=== PATIENT | female | born 1935 ===

== ENCOUNTER 2016-06-11 11:56 | Inpatient (IN) | payer MEDICARE ==
[2016-06-11 12:04] VITALS: BMI 30.9
--- NOTE | 2016-06-11 12:07 | ED PDOC ---
HPI:STROKE - Time Time: 12:05 - Historian Historian: EMS - Chief Complaint Chief Complaint: Mental status change, Unresponsive - Onset Onset: Just prior to presenting - Location Location: Mental Status - Notes: Notes:: 80 year old female is brought in by EMS for a sudden stroke. She was at physical therapy and became AMS. Unable to obtain HPI due to AMS. PMD: Rupesh Yocasta NIHSS Stroke Scale - Date/Time Evaluation Performed Date Performed: 06/11/16 Time Performed: 12:05 When Was NIHSS Performed: Code Stroke - How Severe is the Stroke Level of Consciousness: 3=Unresponsive LOC to Questions: 2=Neither correct LOC to commands: 2=Neither correct Best Gaze: 2=Forced deviation Visual: 0=No visual loss Facial: 0=Normal Motor Arm - Left: 4=No movement Motor Arm - Right: 4=No movement Motor Leg - Left: 4=No movement Motor Leg - Right: 4=No movement Limb Ataxia: 0=Absent Sensory: 2=Severe to total loss Best Language: 3=Mute Dysarthia: 0=Normal articulation Extinction & Inattention (Neglect): 0=Normal, no object Score: 30 rTPA Inclusion/Exclusion - Refusal of Treatment Patient Refused Treatment: No - Inclusion Criteria for Altepase Patient is 18 years or Older: Yes The Clinical Diagnosis of Ischemic Stroke That is Causing a Potentially Disabling Neurological Deficit: Yes Time of Onset is Well Established to be Less Than 270 Minute Before Treatment Would Begin: Yes Risk/Benefit Discussed With Patient/Family Member Present: No - Exclusion Criteria for Altepase Uncontrolled Hypertension at Time of Treatment (Systolic BP above 185 or Diastolic BP above 110 mmHg): No History of: Brain Tumor Active Internal Bleeding: Yes Known Bleeding Diathesis Including but Not Limited to: Platelets Below 100,000/ mm,PTT Above 40 sec After Heparin Use, Current Use of Oral Anitcoagulant With INR Greater Than 1.7 or PT Greater Than 15 secs: No Evidence of an Intracranial Hemorrhage: No Evidence of Major Acute Infarct With Signs Greater Than 1/3 MCA Territory: No Suspicion of Subarachnoid Hemorrhage on Pretreatment Evaluation Even if CT Head Negative For Hemorrhage: No - Warning to TPA With Conditions Following Conditions Weighed Against Anticipated Benefit: Yes Condition: Age Greater Than 75 years, Stroke Severity Too Severe (NIHSS greater than 22) Additional Condition (For 3-4.5 Hour Window): Any anticoagulant use prior to admission (Even if INR less than 1.7) Past Medical History Reviewed: Nursing Documentation, Vital Signs - Medical History PMH: Anxiety, Arthritis, Asthma, COPD, CVA, Depression, Deep Vein Thrombosis, Gastritis, HTN, Hypercholesterolemia, Osteoporosis, Pneumonia, TIA Denies: HIV, Chronic Kidney Disease - Surgical History Surgical History: Endoscopy - Family History Family History: States: Unknown Family Hx - Home Medications Home Medications: Ambulatory Orders Medication Instructions Recorded Hydrochlorothiazide [HCTZ] 12.5 mg PO DAILY 09/25/15 Rivaroxaban [Xarelto] 20 mg PO QPM 09/25/15 Simvastatin [Zocor] 20 mg PO HS 09/25/15 Acetaminophen [Acetaminophen Extra 500 mg PO Q6 PRN 03/28/16 Strength] Esomeprazole Magnesium [Nexium] 40 mg PO DAILY 05/05/16 Fluticasone/Salmeterol 250/50 1 puff IH Q12H puff 05/08/16 [Advair Diskus 250/50] Gabapentin [Neurontin] 300 mg PO TID cap 05/08/16 Lisinopril [Zestril] 20 mg PO DAILY tab 05/08/16 NIFEdipine ER [Procardia XL] [address] 05/08/16 Alendronate [Fosamax] 70 mg PO QWK 05/24/16 Docusate [Colace] 200 mg PO DAILY 05/24/16 Aspirin [Aspirin Chewable] 81 mg PO DAILY chew 05/31/16 Atorvastatin [Lipitor] 10 mg PO HS tab 05/31/16 Famotidine [Pepcid] 20 mg PO BID tab 05/31/16 Lactulose [Enulose] 20 gm PO BID #0 udc 05/31/16 Loratadine [Claritin] 10 mg PO DAILY tab 05/31/16 Sennosides A and B [Senokot Tab] 17.2 mg PO HS tab 05/31/16 - Allergies Allergies/Adverse Reactions: Allergies Allergy/AdvReac Type Severity Reaction Status Date / Time No Known Allergies Allergy Verified 06/11/16 12:05 Review of Systems Review Of Systems: ROS cannot be obtained secondary to pt's inabilty to answer questions. (due to altered mental status) Neurological: Positive for: Altered Mental Status Physical Exam - Reviewed Nursing Documentation Reviewed: Yes Vital Signs Reviewed: Yes - Physical Exam Appears: Positive for: Non-toxic Head Exam: Positive for: ATRAUMATIC, NORMOCEPHALIC Eye Exam: Positive for: Other (right lateral gaze both eyes) Cardiovascular/Chest: Positive for: Murmur Respiratory: Positive for: Normal Breath Sounds. Negative for: Respiratory Distress Pelvic Exam: Negative for: Active Bleeding Extremity: Positive for: Other (RUE: posturing. LLE: minimal movement. RLE: reflexes from pain.) - Laboratory Results Result Diagrams: 06/13/16 04:35 06/13/16 04:35 - ECG O2 Sat by Pulse Oximetry: 100 (RA) Pulse Ox Interpretation: Normal - CT Scan/US CT head Other Rad Studies (CT/US): Radiology Report Reviewed (No acute intracranial hemorrhage. Moderate to significant chronic white matter ischemic changes with more discrete chronic left basal ganglia and left leung radiata/centrum semiovale infarct. Multiple more discrete chronic appearing deep and subcortical white matter as well as basal nuclei and brainstem ischemic changes are less well seen compared to high-resolution MRI. Ex vacuo dilatation left lateral ventricle with moderate generalized volume loss. Large left CP angle calcified mass unchanged. ) - Physician Consult Information Time Consulting Physican Contacted: 13:00 Physician Contacted: Lalo Donis Outcome Of Conversation: Not a candidate for tPA secondary to Xarelto. - Core Measure Core Measure Indicators: Code Stroke - Critical Care Total Time (In Min): 60 Medical Decision Making Medical Decision Makin:05 Initial immpression: stroke Initial plan: * CT head w/o IV contrast * EKG * labs * type and screen * hemoglobin A1C * lipid panel * troponin I * neurology consultation with Zbigniew Riggs MD * PTT coag * prothrombin time * reevaluation 12:45 CT scan reviewed by FINDINGS: HEMORRHAGE: No acute parenchymal, subarachnoid or extra-axial hemorrhage. BRAIN: Moderate to significant diffuse/ coalescent chronic periventricular white matter ischemic changes are again seen extending peripherally into the deep and subcortical white matter both cerebral hemispheres. More discrete chronic infarct within the left basal ganglia extending superiorly into the left radiata /centrum semiovale. Multiple chronic appearing lacunar type infarcts scattered about the deep and subcortical white matter as well as both basal nuclei and brainstem less well seen compared to high-resolution MRI. . The possibility of an acute infarct cannot be excluded based on this study. Clinical correlation recommended. Re- demonstrated is a large calcified extra-axial mass in the left CP angle region that most likely represents large calcified meningioma. Possibility of a calcified acoustic schwannoma cannot be completely excluded. This larger lesion continues to exert mass effect on the left cerebellum and left lateral kang. VENTRICLES: Ex vacuo dilatation of the left lateral ventricle with moderate generalized volume loss unchanged. CALVARIUM: No acute calvarial fractures. Mild hyperostosis frontalis interna. Stable elliptical shaped calcific density within the mid posterior superior parietal scalp PARANASAL SINUSES: The visualized paranasal sinuses are well-developed. Mucosal thickening in the right chamber sphenoid sinus associated with internal calcification again noted. Minor mucosal thickening left chamber sphenoid sinus and a few ethmoid air cells. MASTOID AIR CELLS: Unremarkable as visualized. No inflammatory changes. OTHER FINDINGS: None. IMPRESSION: No acute intracranial hemorrhage. Moderate to significant chronic white matter ischemic changes with more discrete chronic left basal ganglia and left leung radiata/centrum semiovale infarct. Multiple more discrete chronic appearing deep and subcortical white matter as well as basal nuclei and brainstem ischemic changes are less well seen compared to high-resolution MRI. Ex vacuo dilatation left lateral ventricle with moderate generalized volume loss. Large left CP angle calcified mass unchanged. Note that these findings were discussed with Dr. Jacobsen at approximately 12:45 p.m. with written down and read back verification. GCS 7, pt intubated for airway protection. 13:[address] Pickett (ICU). 13:10 Dr. Pickett in ED evaluating patient. Scribe Attestation: Documented by Katelynn Ramsey, acting as a scribe for Barbara Jacobsen MD. Provider Scribe Attestation: All medical record entries made by the Scribe were at my direction and personally dictated by me. I have reviewed the chart and agree that the record accurately reflects my personal performance of the history, physical exam, medical decision making, and the department course for this patient. I have also personally directed, reviewed, and agree with the discharge instructions and disposition. Procedures - Intubation Intubation Method: orotracheal Tube Size (cm): 7.5 Breath Sounds after Intubation: equal Intubation Complications: no complications Post Intubation Xray: Yes Disposition - Clinical Impression Clinical Impression: CVA (cerebral vascular accident) - Patient ED Disposition Is Patient to be Admitted: Yes - Disposition Disposition Time: 13:11 Condition: CRITICAL - Pt Status Changed To: Hospital Disposition Of: Inpatient - Admit Certification Admit to Inpatient:: After my assessment, the patient will require hospitalization for at least two midnights. This is because of the severity of symptoms shown, intensity of services needed, and/or the medical risk in this patient being treated as an outpatient. - POA Present On Arrival: None
[2016-06-11 12:21] LABS: BASO % 0.2 % (0.0-2.0); EOS # 0.1 K/uL (0.0-0.7); EOS % 1.2 % (0.0-4.0); HEMATOCRIT 35.9 % (34.0-47.0); LYMPH # 1.1 K/uL (1.0-4.3); LYMPH % 9.5 % (20.0-40.0); MEAN CELL VOLUME 90.4 fl (81.0-99.0); MEAN CORPUSCULAR HEMOGLOBIN 29.2 pg (27.0-31.0); MEAN CORPUSCULAR HGB CONC 32.3 g/dL (33.0-37.0); MEAN PLATELET VOLUME 8.2 fl (7.2-11.7); MONO # 0.7 K/uL (0.0-0.8); MONO % 6.2 % (0.0-10.0); NEUT # 9.4 K/uL (1.8-7.0); NEUT % 82.9 % (50.0-75.0); NRBC % 0.1 % (0.0-0.0); PLATELET COUNT 278 K/uL (130-400); RED CELL DISTRIBUTION WIDTH 14.5 % (11.5-14.5); WHITE BLOOD COUNT 11.3 K/uL (4.8-10.8)
[2016-06-11] MEDS ORDERED: Etomidate 20 mg/10ml Inj IV ONE (12:27)
[2016-06-11 12:36] LABS: ALB/GLOB RATIO 1.2 (1.0-2.1); ALKALINE PHOSPHATASE 94 U/L (38-126); ALT/SGPT 44 U/L (9-52); AST/SGOT 35 U/L (14-36); BILIRUBIN,TOTAL 0.4 mg/dl (0.2-1.3); BLOOD UREA NITROGEN 16 mg/dl (7-17); CALCIUM 9.7 mg/dL (8.4-10.2); CARBON DIOXIDE 29 mmol/L (22-30); CHLORIDE 99 mmol/L (98-107); CHOLESTEROL 161 mg/dL (0-199); GFR AFRICAN-AMERICAN > 60; GLUCOSE,RANDOM 122 mg/dL (65-105); POTASSIUM 4.6 MMOL/L (3.6-5.0); SODIUM 136 mmol/l (132-148); TOTAL PROTEIN 7.2 G/DL (6.3-8.2)
[2016-06-11 12:55] LABS: PARTIAL THROMBOPLASTIN TIME 27.3 SECONDS (23.3-32.5)
[2016-06-11] MEDS ORDERED: Propofol 10 mg/ml Inj (20 ML) IV STA (12:59)
--- NOTE | 2016-06-11 13:02 | CT ---
PROCEDURE: CT HEAD WITHOUT CONTRAST. HISTORY: R lateral gaze, AMS COMPARISON: Comparison made with prior MRI and CT scan brain dated 05/06/2016 and 05/05/2016 respectively. . . TECHNIQUE: Axial computed tomography images were obtained through the head/brain without intravenous contrast. Radiation dose: Total exam DLP = 1319.49 mGy-cm. FINDINGS: HEMORRHAGE: No acute parenchymal, subarachnoid or extra-axial hemorrhage. BRAIN: Moderate to significant diffuse/ coalescent chronic periventricular white matter ischemic changes are again seen extending peripherally into the deep and subcortical white matter both cerebral hemispheres. More discrete chronic infarct within the left basal ganglia extending superiorly into the left radiata/centrum semiovale. Multiple chronic appearing lacunar type infarcts scattered about the deep and subcortical white matter as well as both basal nuclei and brainstem less well seen compared to high-resolution MRI. . The possibility of an acute infarct cannot be excluded based on this study. Clinical correlation recommended. Re- demonstrated is a large calcified extra-axial mass in the left CP angle region that most likely represents large calcified meningioma. Possibility of a calcified acoustic schwannoma cannot be completely excluded. This larger lesion continues to exert mass effect on the left cerebellum and left lateral kang. VENTRICLES: Ex vacuo dilatation of the left lateral ventricle with moderate generalized volume loss unchanged. CALVARIUM: No acute calvarial fractures. Mild hyperostosis frontalis interna. Stable elliptical shaped calcific density within the mid posterior superior parietal scalp PARANASAL SINUSES: The visualized paranasal sinuses are well-developed. Mucosal thickening in the right chamber sphenoid sinus associated with internal calcification again noted. Minor mucosal thickening left chamber sphenoid sinus and a few ethmoid air cells. MASTOID AIR CELLS: Unremarkable as visualized. No inflammatory changes. OTHER FINDINGS: None. IMPRESSION: No acute intracranial hemorrhage. Moderate to significant chronic white matter ischemic changes with more discrete chronic left basal ganglia and left leung radiata/centrum semiovale infarct. Multiple more discrete chronic appearing deep and subcortical white matter as well as basal nuclei and brainstem ischemic changes are less well seen compared to high-resolution MRI. Ex vacuo dilatation left lateral ventricle with moderate generalized volume loss. Large left CP angle calcified mass unchanged. Note that these findings were discussed with Dr. Jacobsen at approximately 12:45 p.m. with written down and read back verification.
[2016-06-11 13:47] LABS: ABG ALLEN TEST YES; ABG MECHANICAL RATE 16; ARTERIAL BLOOD GAS MODE A/C; ARTERIAL BLOOD GAS O2 CAPACITY 15.7 mL/dL (16-24); ARTERIAL BLOOD GAS O2 CONTENT 15.7 ML/dL (15-23); ARTERIAL BLOOD GAS PH 7.42 (7.35-7.45); ARTERIAL BLOOD GAS PO2 427 mm/Hg (80-100); ARTERIAL BLOOD HGB O2 SAT 97.3 % (95.0-98.0); ATERIAL BLOOD GAS PEEP 5; CARBOXYHEMOGLOBIN 0.6 % (0.5-1.5); HHB -0.2 % (0.0-5.0); METHEMOGLOBIN 2.3 % (0.0-3.0)
--- NOTE | 2016-06-11 14:11 | CP.PCM.HP ---
History of Present Illness - History of Present Illness History of Present Illness: 80 yo F with PMHx including HTN, HLD, Recurrent DVT, CVA (2007), COPD, GERD brought in from [facility] due to sudden altered mental status during physical therapy. No fever reported. On initial evaluation in ED, GCS 7, intubated for airway protection and noted to have right lateral gaze. CODE Stroke was called, CT of head was completed. CT head showed no haemorrhage and no new findings but multiple finding in CT from the the previous CVA's consistent with white matter abnormalities in cerbrul, basal ganglia and brain stem. Neuro consulted, not a candidate for tPa due to Xarelto use. Of note, patient had been recently admitted due to sepsis 2ndary to [facility] 3 wks ago. Due to clinical condition/intubation, history is limited to previous charts and EMS. 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 Former smoker. Denies smoking, EtOH, drugs Allergies: NKDA Meds: checked with ECW/long-term Surgeries: none ED Course: * EKG * labs * type and screen * hemoglobin A1C * lipid panel * troponin I * neurology consultation * PTT/PT/INR * CT head w/o IV contrast IMPRESSION: No acute intracranial hemorrhage. Moderate to significant chronic white matter ischemic changes with more discrete chronic left basal ganglia and left leung radiata/centrum semiovale infarct. Multiple more discrete chronic appearing deep and subcortical white matter as well as basal nuclei and brainstem ischemic changes are less well seen compared to high-resolution MRI. Ex vacuo dilatation left lateral ventricle with moderate generalized volume loss. Large left CP angle calcified mass unchanged. Present on Admission - Present on Admission Any Indicators Present on Admission: Yes Urinary Catheter: Yes Review of Systems - Review of Systems Systems not reviewed;Unavailable: Intubated Past Patient History - Infectious Disease Hx of Infectious Diseases: C.diff - Past Medical History & Family History Past Medical History?: Yes - Past Social History Smoking Status: Former Smoker - CARDIAC Hx Hypercholesterolemia: Yes Hx Hypertension: Yes - PULMONARY Hx Asthma: Yes Hx Chronic Obstructive Pulmonary Disease (COPD): Yes Hx Pneumonia: Yes - NEUROLOGICAL Hx Transient Ischemic Attacks (TIA): Yes - HEENT Hx HEENT Problems: Yes (wears glasses) - RENAL Hx Chronic Kidney Disease: No - ENDOCRINE/METABOLIC Hx Endocrine Disorders: No - HEMATOLOGICAL/ONCOLOGICAL Hx Human Immunodeficiency Virus (HIV): No - INTEGUMENTARY Hx Dermatological Problems: No - MUSCULOSKELETAL/RHEUMATOLOGICAL Hx Arthritis: Yes Hx Osteoporosis: Yes - GASTROINTESTINAL Hx Gastritis: Yes - GENITOURINARY/GYNECOLOGICAL Hx Genitourinary Disorders: Yes Hx Incontinence: Yes - PSYCHIATRIC Hx Anxiety: Yes Hx Depression: Yes - SURGICAL HISTORY Hx Surgeries: Yes - ANESTHESIA Hx Anesthesia: Yes Hx Anesthesia Reactions: No Hx Malignant Hyperthermia: No Meds Allergies/Adverse Reactions: Allergies Allergy/AdvReac Type Severity Reaction Status Date / Time No Known Allergies Allergy Verified 06/11/16 12:05 Physical Exam - Head Exam Head Exam: ATRAUMATIC, NORMAL INSPECTION, NORMOCEPHALIC - Eye Exam Additional comments: right lateral gaze - ENT Exam Additional comments: intubated - Neck Exam Neck exam: Positive for: Normal Inspection - Respiratory Exam Respiratory Exam: Clear to Auscultation Bilateral, NORMAL BREATHING PATTERN. absent: Rales, Rhonchi, Wheezes - Cardiovascular Exam Cardiovascular Exam: RRR, +S1, +S2, Systolic Murmur - GI/Abdominal Exam GI & Abdominal Exam: Distended, Normal Bowel Sounds, Soft. absent: Tenderness - Extremities Exam Extremities exam: Positive for: normal inspection, pedal edema (1+ bilaterally) - Neurological Exam Neurological exam: Altered - Expanded Neurological Exam Expanded Neurological exam: Protecting the Airway - Skin Skin Exam: Dry, Intact, Normal Color, Warm Results - Vital Signs Recent Vital Signs: Last Vital Signs Temp 99.9 F H 06/11/16 13:25 Pulse 96 H 06/11/16 13:48 Resp 16 06/11/16 13:48 BP 148/83 06/11/16 13:48 Pulse Ox 100 06/11/16 13:48 - Labs Result Diagrams: 06/11/16 12:05 06/11/16 12:05 Labs: Laboratory Results - last 24 hr 06/11/16 13:45 pCO2 40 pO2 427 H HCO3 26.0 ABG pH 7.42 ABG Total CO2 27.1 ABG O2 Saturation 100.2 H ABG O2 Content 15.7 ABG Base Excess 1.3 ABG Hemoglobin 10.6 L ABG Carboxyhemoglobin 0.6 POC ABG HHb (Measured) -0.2 L ABG Methemoglobin 2.3 ABG O2 Capacity 15.7 L Jean-Paul Test Yes A-a O2 Difference 236.0 Hgb O2 Saturation 97.3 Vent Mode A/c Mechanical Rate 16 FiO2 100.0 Tidal Volume 550 PEEP 5 Assessment & Plan - Assessment and Plan (Free Text) Assessment: 80 yo F with PMHx including HTN, HLD, Recurrent DVT, CVA (2007), COPD, GERD brought in from [facility] due to sudden altered mental status admitted to ICU for AMS. Plan: Altered mental status -Likely due to CVA -WBC slightly elevated, afebrile -CXR unremarkable -Blood/urine cx pending -F/U CXR official read -EKG completed in ED -Neurology consulted, appreciate recommendations -Intubated for airway protection -repeat CT head in 24hrs -Hold xarelto for now -IVF NS at 75 cc/hr -follow up labs in AM Hypertension - hold home meds due to intubation - monitor, avoid hypotension and avoid decreasing BP as long as systolic BP < 200 Hyperlipidemia - lipid panel completed - hold statin due to intubation DVT Prophylaxis -SCDs - Date & Time Date: 06/11/16 Time: 14:38 Decision To Admit - Pt Status Changed To: Hospital Disposition Of: Inpatient - Admit Certification Admit to Inpatient:: After my assessment, the patient will require hospitalization for at least two midnights. This is because of the severity of symptoms shown, intensity of services needed, and/or the medical risk in this patient being treated as an outpatient. - . Bed Request Type: Intensive Care Admitting Physician: Ann Leyva
[2016-06-11] MEDS ORDERED: Sodium Chloride 0.9% 1,000 ML IV SCH (14:30)
[2016-06-11 14:39] LABS: TOTAL CELLS COUNTED 100
[2016-06-11 14:40] LABS: BASOPHIL 1 % (0-2); NEUTROPHIL 82 % (42-75); STOMATOCYTES SLIGHT
--- NOTE | 2016-06-11 14:59 | CP.PCM.CON ---
History of Present Illness - History of Present Illness History of Present Illness: 80 YOF with h/o previous CVA , twice , on xarelto, was in rehab from there she was transferred to ER for MISHA, unable to talk and actually posturing while in ER. She was intubated for airway protection and CT head showed no heamorrhage and no new findings but multiple finding in CT from the the previous CVA's consitanet with white matter abnormalities in cerbrul, basal ganglia and brain stem. Makeda I saw the pt in ER , she was intubated and sedated. Review of Systems - Review of Systems Systems not reviewed;Unavailable: Acuity of Condition - Constitutional Constitutional: As Per HPI - Cardiovascular Cardiovascular: As Per HPI - Respiratory Respiratory: As Per HPI - Musculoskeletal Musculoskeletal: As Per HPI Past Patient History - Infectious Disease Hx of Infectious Diseases: C.diff - Past Medical History & Family History Past Medical History?: Yes - Past Social History Smoking Status: Former Smoker - CARDIAC Hx Hypercholesterolemia: Yes Hx Hypertension: Yes - PULMONARY Hx Asthma: Yes Hx Chronic Obstructive Pulmonary Disease (COPD): Yes Hx Pneumonia: Yes - NEUROLOGICAL Hx Transient Ischemic Attacks (TIA): Yes - HEENT Hx HEENT Problems: Yes (wears glasses) - RENAL Hx Chronic Kidney Disease: No - ENDOCRINE/METABOLIC Hx Endocrine Disorders: No - HEMATOLOGICAL/ONCOLOGICAL Hx Human Immunodeficiency Virus (HIV): No - INTEGUMENTARY Hx Dermatological Problems: No - MUSCULOSKELETAL/RHEUMATOLOGICAL Hx Arthritis: Yes Hx Osteoporosis: Yes - GASTROINTESTINAL Hx Gastritis: Yes - GENITOURINARY/GYNECOLOGICAL Hx Genitourinary Disorders: Yes Hx Incontinence: Yes - PSYCHIATRIC Hx Anxiety: Yes Hx Depression: Yes - SURGICAL HISTORY Hx Surgeries: Yes - ANESTHESIA Hx Anesthesia: Yes Hx Anesthesia Reactions: No Hx Malignant Hyperthermia: No Meds Allergies/Adverse Reactions: Allergies Allergy/AdvReac Type Severity Reaction Status Date / Time No Known Allergies Allergy Verified 06/11/16 12:05 - Medications Medications: Current Medications Propofol (Diprivan) 100 mls @ 2.449 mls/hr IV .Q24H LIBRA; 5 MCG/KG/MIN PRN Reason: Protocol Stop: 06/12/16 13:16 Last Admin: 06/11/16 13:15 Dose: 2.449 mls/hr Sodium Chloride (Sodium Chloride 0.9%) 1,000 mls @ 50 mls/hr IV .Q20H LIBRA Stop: 06/12/16 14:31 Last Admin: 06/11/16 14:30 Dose: 50 mls/hr Physical Exam - Head Exam Head Exam: ATRAUMATIC - Eye Exam Eye Exam: Nystagmus Pupil Exam: Unequal - ENT Exam ENT Exam: Normal Exam - Neck Exam Neck exam: Positive for: Normal Inspection - Cardiovascular Exam Cardiovascular Exam: Tachycardia Results - Vital Signs Recent Vital Signs: Last Vital Signs Temp 99.9 F H 06/11/16 13:25 Pulse 98 H 06/11/16 14:35 Resp 16 06/11/16 14:35 BP 143/76 06/11/16 14:35 Pulse Ox 100 06/11/16 14:38 - Labs Result Diagrams: 06/11/16 12:05 06/11/16 12:05 Labs: Laboratory Results - last 24 hr 06/11/16 13:45 pCO2 40 pO2 427 H HCO3 26.0 ABG pH 7.42 ABG Total CO2 27.1 ABG O2 Saturation 100.2 H ABG O2 Content 15.7 ABG Base Excess 1.3 ABG Hemoglobin 10.6 L ABG Carboxyhemoglobin 0.6 POC ABG HHb (Measured) -0.2 L ABG Methemoglobin 2.3 ABG O2 Capacity 15.7 L Jean-Paul Test Yes A-a O2 Difference 236.0 Hgb O2 Saturation 97.3 Vent Mode A/c Mechanical Rate 16 FiO2 100.0 Tidal Volume 550 PEEP 5 - EKG Data EKG shows normal: Sinus rhythm Assessment & Plan - Assessment and Plan (Free Text) Assessment: Acute ischemic CVA Hypertension Res failure: on vent Plan: Will repeat CT in 24 hours Hold xarelto for the time being, neurology consult IVF NS at 75 cc/h monitor BP, avoid hypotension and avoid decreasing BP as long as systolic BP > 200
[2016-06-11] MEDS: Sodium Chloride 0.9% 1,000 ML IV SCH ×2 (15:25→18:48)
[2016-06-11 15:55] LABS: RBC URINE 3 /hpf (0-3); URINE BILIRUBIN NEGATIVE (NEGATIVE); URINE BLOOD SMALL (NEGATIVE); URINE COLOR YELLOW (YELLOW); URINE GLUCOSE (UA) NEG (Normal); URINE KETONE NEGATIVE (NEGATIVE); URINE LEUKOCYTE ESTERASE NEG Leu/uL (Negative); URINE PROTEIN NEGATIVE (NEGATIVE); URINE UROBILINOGEN 0.2-1.0 mg/dL (0.2-1.0); WBC URINE 1 /hpf (0-5)
--- NOTE | 2016-06-11 16:14 | CP.PCM.CON ---
History of Present Illness - History of Present Illness History of Present Illness: CC: Acute Respiratory failure 80 y/o F brought to [facility] on 06/11/16 by EMS for condition of AMS on DOA with no improvement. As per Pt's chart, Pt was having PT at [facility] when they noticed was having change in mental status, nurse called EMS and Pt was brought to ER [facility],, while on evaluation in the ER, code stroke was called, Pt was intubated and transferred to ICU. Worsening symptoms; Hx of CVA x2. Aggravated factor: Non verbal, unresponsive , coma scale 8. Hx limited due to Pt's medical condition. Pt last admission to [facility] was from 05/24/16 to 05/31/16 , mainly Tx for PNA, Acute exacerbation of COPD, UTI, there after upon discharge, pt was transferred to [facility] to continue abx Tx and for BASIL. 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 Review of Systems - Review of Systems Systems not reviewed;Unavailable: Acuity of Condition, Altered Mental Status, Intubated Past Patient History - Infectious Disease Hx of Infectious Diseases: C.diff - Past Medical History & Family History Past Medical History?: Yes Pertinent Family History: Unknown - Past Social History Smoking Status: Former Smoker (25 pack year history) Alcohol: None Drugs: Denies Home Situation {Lives}: With Family - CARDIAC Hx Cardiac Disorders: Yes Hx Hypercholesterolemia: Yes Hx Hypertension: Yes - PULMONARY Hx Respiratory Disorders: Yes Hx Asthma: Yes Hx Chronic Obstructive Pulmonary Disease (COPD): Yes Hx Pneumonia: Yes - NEUROLOGICAL Hx Neurological Disorder: Yes (CVA R sided deficit.) HX Cerebrovascular Accident: Yes Hx Transient Ischemic Attacks (TIA): Yes - HEENT Hx HEENT Problems: Yes (wears glasses) - RENAL Hx Chronic Kidney Disease: No - ENDOCRINE/METABOLIC Hx Endocrine Disorders: No - HEMATOLOGICAL/ONCOLOGICAL Hx Blood Disorders: No Hx Human Immunodeficiency Virus (HIV): No - INTEGUMENTARY Hx Dermatological Problems: No - MUSCULOSKELETAL/RHEUMATOLOGICAL Hx Musculoskeletal Disorders: Yes Hx Arthritis: Yes Hx Back Pain: Yes Hx Osteoporosis: Yes - GASTROINTESTINAL Hx Gastrointestinal Disorders: Yes Hx Gastritis: Yes Hx Hemorrhoids: Yes - GENITOURINARY/GYNECOLOGICAL Hx Genitourinary Disorders: Yes Hx Incontinence: Yes - PSYCHIATRIC Hx Psychophysiologic Disorder: Yes Hx Anxiety: Yes Hx Depression: Yes - SURGICAL HISTORY Hx Surgeries: Yes Other/Comment: IVC filter insertion. Cardiac cath, R foot sx. - ANESTHESIA Hx Anesthesia: Yes Hx Anesthesia Reactions: No Hx Malignant Hyperthermia: No Meds Allergies/Adverse Reactions: Allergies Allergy/AdvReac Type Severity Reaction Status Date / Time No Known Allergies Allergy Verified 06/11/16 12:05 - Medications Medications: Current Medications Propofol (Diprivan) 100 mls @ 2.449 mls/hr IV .Q24H LIBRA; 5 MCG/KG/MIN PRN Reason: Protocol Stop: 06/12/16 13:16 Last Titration: 06/11/16 13:45 Dose: 10 mcg/kg/min Sodium Chloride (Sodium Chloride 0.9%) 1,000 mls @ 75 mls/hr IV .[id number] LIBRA Physical Exam - Constitutional Appears: Chronically Ill - Head Exam Head Exam: NORMAL INSPECTION - Eye Exam Additional comments: Eyes lateral gaze, pupils sluggish reaction to light - ENT Exam Additional comments: Intubated - Neck Exam Neck exam: Positive for: Normal Inspection - Respiratory Exam Respiratory Exam: Decreased Breath Sounds (at bases) - Cardiovascular Exam Cardiovascular Exam: REGULAR RHYTHM, Systolic Murmur - GI/Abdominal Exam GI & Abdominal Exam: Distended, Normal Bowel Sounds, Soft - Extremities Exam Extremities exam: Positive for: pedal edema (b/l) - Back Exam Back exam: NORMAL INSPECTION - Neurological Exam Additional comments: Intubated, sedated, eyes lateral gaze, pupils sluggish reaction to light, extremities Left side increased tone,decreased Right side, plantar upgoing. - Psychiatric Exam Additional comments: Intubated, sedated - Skin Skin Exam: Normal Color, Warm Results - Vital Signs Recent Vital Signs: Last Vital Signs Temp 99.3 F 06/11/16 14:45 Pulse 107 H 06/11/16 14:59 Resp 24 06/11/16 14:59 BP 164/88 H 06/11/16 14:45 Pulse Ox 100 06/11/16 14:45 reviewed Franko - Labs Result Diagrams: 06/13/16 04:35 06/13/16 04:35 Labs: Laboratory Results - last 24 hr 06/11/16 13:45 pCO2 40 pO2 427 H HCO3 26.0 ABG pH 7.42 ABG Total CO2 27.1 ABG O2 Saturation 100.2 H ABG O2 Content 15.7 ABG Base Excess 1.3 ABG Hemoglobin 10.6 L ABG Carboxyhemoglobin 0.6 POC ABG HHb (Measured) -0.2 L ABG Methemoglobin 2.3 ABG O2 Capacity 15.7 L Jean-Paul Test Yes A-a O2 Difference 236.0 Hgb O2 Saturation 97.3 Vent Mode A/c Mechanical Rate 16 FiO2 100.0 Tidal Volume 550 PEEP 5 reviewed J.P. - Imaging and Cardiology Chest x-ray Status: Report reviewed by me (Rafi.) CT scan - head Status: Report reviewed by me ([email or web address]) Assessment & Plan (1) Acute respiratory failure Status: Acute Priority: High (2) CVA (cerebral vascular accident) Status: Acute Priority: High (3) COPD (chronic obstructive pulmonary disease) Status: Chronic Priority: Medium (4) History of DVT (deep vein thrombosis) Status: Chronic Priority: Medium - Assessment and Plan (Free Text) Plan: Continue ventilatory support, IVF , f/u CXR, attempt of weaning., Neuro consult f/u ICU time: 65 minutes. - Date & Time Date: 06/11/16
--- NOTE | 2016-06-11 16:46 | RAD ---
HISTORY: CVA COMPARISON: Comparison chest dated 05/30/2016 FINDINGS: LUNGS: In situ ETT, tip of which lies approximately 3.2 cm above caprice. Low lung volumes with mild crowded bronchovascular markings and mild bibasilar atelectasis of. The central pulmonary vasculature is slightly prominent likely due to low lung volumes as well. Probable small right sided effusion PLEURA: No apparent pneumothorax. CARDIOVASCULAR: Normal. OSSEOUS STRUCTURES: No degenerative changes both shoulder girdles again noted. Marked productive bone changes involving the left humeral head, acromion and distal clavicle. VISUALIZED UPPER ABDOMEN: Normal. OTHER FINDINGS: None. IMPRESSION: ETT as above. Low lung volumes with mild crowded bronchovascular markings and mild bibasilar atelectasis left greater than right. Small right-sided effusion. Tiny left effusion not excluded
[2016-06-11] MEDS ORDERED: Chlorhexidine Gluconate 1 APPL/PKT TP ONE (17:41)
[2016-06-12] MEDS ORDERED: Acetaminophen 650mg/20.3ml solution UD PO PRN (00:17)
[2016-06-12] MEDS ORDERED: Acetaminophen 650mg/20.3ml solution UD NG PRN (00:18)
[2016-06-12] MEDS ORDERED: Albuterol-Ipratrop 3 mg / 0.5 (3 ml) UD ONE (00:44)
[2016-06-12] MEDS: Albuterol-Ipratrop 3 mg / 0.5 (3 ml) UD INH SCH ×4 (01:08→19:44)
[2016-06-12] MEDS: Sodium Chloride 0.9% 1,000 ML IV SCH ×2 (04:42→18:37)
[2016-06-12 05:55] LABS: ABG ALLEN TEST YES; ABG MECHANICAL RATE 16; ARTERIAL BLOOD GAS HCO3 29.4 mmol/L (21-28); ARTERIAL BLOOD GAS MODE PRVC AC; ARTERIAL BLOOD GAS O2 CAPACITY 16.1 mL/dL (16-24); ARTERIAL BLOOD GAS PH 7.57 (7.35-7.45); ARTERIAL BLOOD GAS PO2 203 mm/Hg (80-100); ARTERIAL BLOOD HGB O2 SAT 96.8 % (95.0-98.0); ATERIAL BLOOD GAS PEEP 5; CARBOXYHEMOGLOBIN 1.3 % (0.5-1.5); HHB 0.6 % (0.0-5.0); METHEMOGLOBIN 1.3 % (0.0-3.0)
[2016-06-12 06:31] LABS: BASO # 0.1 K/uL (0.0-0.2); BASO % 0.5 % (0.0-2.0); EOS % 0.2 % (0.0-4.0); HEMATOCRIT 33.4 % (34.0-47.0); LYMPH # 0.4 K/uL (1.0-4.3); MEAN CELL VOLUME 90.4 fl (81.0-99.0); MEAN CORPUSCULAR HEMOGLOBIN 29.5 pg (27.0-31.0); MEAN CORPUSCULAR HGB CONC 32.6 g/dL (33.0-37.0); MONO # 0.6 K/uL (0.0-0.8); MONO % 4.5 % (0.0-10.0); NEUT # 12.4 K/uL (1.8-7.0); NEUT % 91.8 % (50.0-75.0); PLATELET COUNT 251 K/uL (130-400); RED CELL DISTRIBUTION WIDTH 14.4 % (11.5-14.5); WHITE BLOOD COUNT 13.5 K/uL (4.8-10.8)
[2016-06-12 06:43] LABS: ALB/GLOB RATIO 1.2 (1.0-2.1); ALKALINE PHOSPHATASE 89 U/L (38-126); ALT/SGPT 37 U/L (9-52); AST/SGOT 28 U/L (14-36); BILIRUBIN,TOTAL 0.5 mg/dl (0.2-1.3); BLOOD UREA NITROGEN 11 mg/dl (7-17); CALCIUM 9.3 mg/dL (8.4-10.2); CARBON DIOXIDE 26 mmol/L (22-30); CHLORIDE 103 mmol/L (98-107); GFR AFRICAN-AMERICAN > 60; GLUCOSE,RANDOM 131 mg/dL (65-105); POTASSIUM 3.8 MMOL/L (3.6-5.0); SODIUM 136 mmol/l (132-148); TOTAL PROTEIN 6.6 G/DL (6.3-8.2)
[2016-06-12 08:30] LABS: NEUTROPHIL 93 % (42-75)
[2016-06-12 09:03] LABS: TOTAL CELLS COUNTED 100
--- NOTE | 2016-06-12 09:03 | CP.CCUPN ---
CCU Subjective - Physician Review Events Since Last Encounter (Free Text): 06/12/16 09:03 On vent, not breathing over the vent, opens eyes on verbal command, left arm and leg is flaccid. Received manitol. BP has been stable, on no meds. CCU Objective - Vital Signs / Intake & Output Vital Signs (Last 4 hours): Vital Signs Temp Pulse Resp BP Pulse Ox 06/12/16 08:00 99.7 F H 102 H 20 127/75 99 06/12/16 06:00 92 H 16 117/66 100 Intake and Output (Last 8hrs): Intake & Output 06/11/16 06/12/16 06/12/16 21:59 06:59 14:59 Intake Total Output Total Balance Intake: IV Output: Urine Urethral ([place]) - Physical Exam Narrative Physical Exam (Free Text): 06/12/16 09:07 P/E neck: No JVD Lungs: no ronchi, crackles AbdomenL soft, non-tender Ext; No edema neuro; left arm flaccid rt arm: pronated: old CVA, Left leg: flaccid 1/5 - Medications Active Medications: Active Medications Generic Name Dose Route Start Last Admin Trade Name Freq PRN Reason Stop Dose Admin Acetaminophen 650 mg 06/12/16 00:18 06/12/16 00:33 Tylenol 650mg/20.3ml Solution Ud NG 650 mg Q6 PRN Administration Fever >100.4 F Albuterol/Ipratropium 3 ml 06/12/16 03:00 06/12/16 07:31 Duoneb 3 Mg/0.5 Mg (3 Ml) Ud INH 3 ml RQ6 LIBRA Administration Clopidogrel Bisulfate 75 mg 06/12/16 09:00 Plavix PO DAILY LIBRA Propofol 100 mls @ 2.449 mls/hr 06/11/16 13:15 06/11/16 13:45 Diprivan IV 06/12/16 13:16 10 mcg/kg/min .Q24H LIBRA Titration Protocol 5 MCG/KG/MIN Sodium Chloride 1,000 mls @ 75 mls/hr 06/11/16 15:21 06/12/16 04:42 Sodium Chloride 0.9% IV 75 mls/hr .[id number] LIBRA Administration Mannitol 500 mls @ 100 mls/hr 06/11/16 17:45 06/12/16 00:30 Mannitol IV Not Given .Q5H LIBRA - Patient Studies Lab Studies: Lab Studies 06/12/16 06/12/16 06/11/16 Range/Units 05:49 05:30 18:55 WBC 13.5 H (4.8-10.8) K/uL RBC 3.70 L (3.80-5.20) Mil/uL Hgb 10.9 L (12.0-16.0) g/dL Hct 33.4 L (34.0-47.0) % MCV 90.4 (81.0-99.0) fl MCH 29.5 (27.0-31.0) pg MCHC 32.6 L (33.0-37.0) g/dL RDW 14.4 (11.5-14.5) % Plt Count 251 (130-400) K/uL MPV 8.0 (7.2-11.7) fl Neut % (Auto) 91.8 H (50.0-75.0) % Lymph % (Auto) 3.0 L (20.0-40.0) % [place] % (Auto) 4.5 (0.0-10.0) % Eos % (Auto) 0.2 (0.0-4.0) % Baso % (Auto) 0.5 (0.0-2.0) % Neut # 12.4 H (1.8-7.0) K/uL Lymph # 0.4 L (1.0-4.3) K/uL [place] # 0.6 (0.0-0.8) K/uL Eos # 0.0 (0.0-0.7) K/uL Baso # 0.1 (0.0-0.2) K/uL Neutrophils % (Manual) 93 H (42-75) % Band Neutrophils % 2 (0-2) % Lymphocytes % (Manual) 3 L (20-50) % Monocytes % (Manual) 2 (0-10) % Platelet Estimate Normal (NORMAL) Polychromasia Slight pCO2 30 L (35-45) mm/Hg pO2 203 H (80-100) mm/Hg HCO3 29.4 H (21-28) mmol/L ABG pH 7.57 H (7.35-7.45) ABG Total CO2 28.4 H (22-28) mmol/L ABG O2 Saturation 99.4 H (95-98) % ABG O2 Content 16.0 (15-23) ML/dL ABG Base Excess 5.7 H (-2.0-3.0) mmol/L ABG Hemoglobin 11.4 L (11.7-17.4) g/dL ABG Carboxyhemoglobin 1.3 (0.5-1.5) % POC ABG HHb (Measured) 0.6 (0.0-5.0) % ABG Methemoglobin 1.3 (0.0-3.0) % ABG O2 Capacity 16.1 (16-24) mL/dL Jean-Paul Test Yes A-a O2 Difference 116.0 mm/Hg Hgb O2 Saturation 96.8 (95.0-98.0) % Vent Mode Prvc ac Mechanical Rate 16 FiO2 50.0 % Tidal Volume 550 PEEP 5 Sodium 136 (132-148) mmol/l Potassium 3.8 (3.6-5.0) MMOL/L Chloride 103 (98-107) mmol/L Carbon Dioxide 26 (22-30) mmol/L Anion Gap 10 (10-20) BUN 11 (7-17) mg/dl Creatinine 0.7 (0.7-1.2) mg/dL Est GFR ( Amer) > 60 Est GFR (Non-Af Amer) > 60 Random Glucose 131 H (65-105) mg/dL Serum Osmolality 286 (272-300) mosm/kg Calcium 9.3 (8.4-10.2) mg/dL Total Bilirubin 0.5 (0.2-1.3) mg/dl AST 28 (14-36) U/L ALT 37 (9-52) U/L Alkaline Phosphatase 89 (38-126) U/L Total Protein 6.6 (6.3-8.2) G/DL Albumin 3.6 (3.5-5.0) g/dL Globulin 3.0 (2.2-3.9) gm/dL Albumin/Globulin Ratio 1.2 (1.0-2.1) 06/11/16 Range/Units 13:45 WBC (4.8-10.8) K/uL RBC (3.80-5.20) Mil/uL Hgb (12.0-16.0) g/dL Hct (34.0-47.0) % MCV (81.0-99.0) fl MCH (27.0-31.0) pg MCHC (33.0-37.0) g/dL RDW (11.5-14.5) % Plt Count (130-400) K/uL MPV (7.2-11.7) fl Neut % (Auto) (50.0-75.0) % Lymph % (Auto) (20.0-40.0) % [place] % (Auto) (0.0-10.0) % Eos % (Auto) (0.0-4.0) % Baso % (Auto) (0.0-2.0) % Neut # (1.8-7.0) K/uL Lymph # (1.0-4.3) K/uL [place] # (0.0-0.8) K/uL Eos # (0.0-0.7) K/uL Baso # (0.0-0.2) K/uL Neutrophils % (Manual) (42-75) % Band Neutrophils % (0-2) % Lymphocytes % (Manual) (20-50) % Monocytes % (Manual) (0-10) % Platelet Estimate (NORMAL) Polychromasia pCO2 40 (35-45) mm/Hg pO2 427 H (80-100) mm/Hg HCO3 26.0 (21-28) mmol/L ABG pH 7.42 (7.35-7.45) ABG Total CO2 27.1 (22-28) mmol/L ABG O2 Saturation 100.2 H (95-98) % ABG O2 Content 15.7 (15-23) ML/dL ABG Base Excess 1.3 (-2.0-3.0) mmol/L ABG Hemoglobin 10.6 L (11.7-17.4) g/dL ABG Carboxyhemoglobin 0.6 (0.5-1.5) % POC ABG HHb (Measured) -0.2 L (0.0-5.0) % ABG Methemoglobin 2.3 (0.0-3.0) % ABG O2 Capacity 15.7 L (16-24) mL/dL Jean-Paul Test Yes A-a O2 Difference 236.0 mm/Hg Hgb O2 Saturation 97.3 (95.0-98.0) % Vent Mode A/c Mechanical Rate 16 FiO2 100.0 % Tidal Volume 550 PEEP 5 Sodium (132-148) mmol/l Potassium (3.6-5.0) MMOL/L Chloride (98-107) mmol/L Carbon Dioxide (22-30) mmol/L Anion Gap (10-20) BUN (7-17) mg/dl Creatinine (0.7-1.2) mg/dL Est GFR ( Amer) Est GFR (Non-Af Amer) Random Glucose (65-105) mg/dL Serum Osmolality (272-300) mosm/kg Calcium (8.4-10.2) mg/dL Total Bilirubin (0.2-1.3) mg/dl AST (14-36) U/L ALT (9-52) U/L Alkaline Phosphatase (38-126) U/L Total Protein (6.3-8.2) G/DL Albumin (3.5-5.0) g/dL Globulin (2.2-3.9) gm/dL Albumin/Globulin Ratio (1.0-2.1) Laboratory Results - last 24 hr 06/11/16 06/11/16 06/12/16 13:45 18:55 05:30 WBC 13.5 H RBC 3.70 L Hgb 10.9 L Hct 33.4 L MCV 90.4 MCH 29.5 MCHC 32.6 L RDW 14.4 Plt Count 251 MPV 8.0 Neut % (Auto) 91.8 H Lymph % (Auto) 3.0 L [place] % (Auto) 4.5 Eos % (Auto) 0.2 Baso % (Auto) 0.5 Neut # 12.4 H Lymph # 0.4 L [place] # 0.6 Eos # 0.0 Baso # 0.1 Neutrophils % (Manual) 93 H Band Neutrophils % 2 Lymphocytes % (Manual) 3 L Monocytes % (Manual) 2 Platelet Estimate Normal Polychromasia Slight pCO2 40 pO2 427 H HCO3 26.0 ABG pH 7.42 ABG Total CO2 27.1 ABG O2 Saturation 100.2 H ABG O2 Content 15.7 ABG Base Excess 1.3 ABG Hemoglobin 10.6 L ABG Carboxyhemoglobin 0.6 POC ABG HHb (Measured) -0.2 L ABG Methemoglobin 2.3 ABG O2 Capacity 15.7 L Jean-Paul Test Yes A-a O2 Difference 236.0 Hgb O2 Saturation 97.3 Vent Mode A/c Mechanical Rate 16 FiO2 100.0 Tidal Volume 550 PEEP 5 Sodium 136 Potassium 3.8 Chloride 103 Carbon Dioxide 26 Anion Gap 10 BUN 11 Creatinine 0.7 Est GFR ( Amer) > 60 Est GFR (Non-Af Amer) > 60 Random Glucose 131 H Serum Osmolality 286 Calcium 9.3 Total Bilirubin 0.5 AST 28 ALT 37 Alkaline Phosphatase 89 Total Protein 6.6 Albumin 3.6 Globulin 3.0 Albumin/Globulin Ratio 1.2 06/12/16 05:49 WBC RBC Hgb Hct MCV MCH MCHC RDW Plt Count MPV Neut % (Auto) Lymph % (Auto) [place] % (Auto) Eos % (Auto) Baso % (Auto) Neut # Lymph # [place] # Eos # Baso # Neutrophils % (Manual) Band Neutrophils % Lymphocytes % (Manual) Monocytes % (Manual) Platelet Estimate Polychromasia pCO2 30 L pO2 203 H HCO3 29.4 H ABG pH 7.57 H ABG Total CO2 28.4 H ABG O2 Saturation 99.4 H ABG O2 Content 16.0 ABG Base Excess 5.7 H ABG Hemoglobin 11.4 L ABG Carboxyhemoglobin 1.3 POC ABG HHb (Measured) 0.6 ABG Methemoglobin 1.3 ABG O2 Capacity 16.1 Jean-Paul Test Yes A-a O2 Difference 116.0 Hgb O2 Saturation 96.8 Vent Mode Prvc ac Mechanical Rate 16 FiO2 50.0 Tidal Volume 550 PEEP 5 Sodium Potassium Chloride Carbon Dioxide Anion Gap BUN Creatinine Est GFR ( Amer) Est GFR (Non-Af Amer) Random Glucose Serum Osmolality Calcium Total Bilirubin AST ALT Alkaline Phosphatase Total Protein Albumin Globulin Albumin/Globulin Ratio Fingerstick Blood Sugar Results: 123 Assessment/Plan - Assessment and Plan (Free Text) Assessment: Acute ischemic CVA: probably Rt MCA 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
--- NOTE | 2016-06-12 09:42 | CP.PCM.PN ---
Subjective - Date & Time of Evaluation Date of Evaluation: 06/12/16 Time of Evaluation: 09:41 - Subjective Subjective: 80 yo F was seen at bedside, intubated. Vent settings: AC, Fio2; 0.50, VT 500, 12/m, PEEP 5 - Pt was opening eyes on verbal command. NG tube in place. Urine appears yellow and clear in color, 2700 in 24 hours Had an a temperature of 102.1 @ 12:00 pm . Objective - Vital Signs/Intake and Output Vital Signs (last 24 hours): Temp Pulse Resp BP Pulse Ox 99.7 F H 102 H 20 127/75 99 06/12/16 08:00 06/12/16 08:00 06/12/16 08:00 06/12/16 08:00 06/12/16 08:00 Intake and Output: 06/12/16 06/12/16 06:59 18:59 Intake Total Output Total Balance - Medications Medications: Current Medications Acetaminophen (Tylenol 650mg/20.3ml Solution Ud) 650 mg NG Q6 PRN PRN Reason: Fever >100.4 F Last Admin: 06/12/16 00:33 Dose: 650 mg Albuterol/Ipratropium (Duoneb 3 Mg/0.5 Mg (3 Ml) Ud) 3 ml INH RQ6 LIBRA Last Admin: 06/12/16 07:31 Dose: 3 ml Clopidogrel Bisulfate (Plavix) 75 mg PO DAILY LIBRA Last Admin: 06/12/16 09:08 Dose: 75 mg Propofol (Diprivan) 100 mls @ 2.449 mls/hr IV .Q24H LIBRA; 5 MCG/KG/MIN PRN Reason: Protocol Stop: 06/12/16 13:16 Last Titration: 06/11/16 13:45 Dose: 10 mcg/kg/min Sodium Chloride (Sodium Chloride 0.9%) 1,000 mls @ 75 mls/hr IV .[id number] LIBRA Last Admin: 06/12/16 04:42 Dose: 75 mls/hr Mannitol (Mannitol) 500 mls @ 100 mls/hr IV .Q5H LIBRA Last Admin: 06/12/16 00:30 Dose: Not Given - Labs Labs: 06/12/16 05:30 06/12/16 05:30 PT 12.1 SECONDS (9.6-11.2) H 06/11/16 12:05 INR 1.16 (0.92-1.08) H 06/11/16 12:05 APTT 27.3 SECONDS (23.3-32.5) 06/11/16 12:05 - Constitutional Appears: Chronically Ill - Head Exam Head Exam: ATRAUMATIC, NORMAL INSPECTION - Eye Exam Eye Exam: PERRL (Pt appear to have right lateral gaze) Pupil Exam: PERRL - Respiratory Exam Respiratory Exam: Clear to Ausculation Bilateral Additional comments: On ventilator - Cardiovascular Exam Cardiovascular Exam: REGULAR RHYTHM, +S1, +S2 - GI/Abdominal Exam GI & Abdominal Exam: Soft, Normal Bowel Sounds - Neurological Exam Neurological Exam: Awake (Respond to name on verbal stimuli, with opening eyes. ) Neuro motor strength exam: Left Upper Extremity: 0 (Flacid left upper extremity noted) Additional comments: Flacid left upper extremitiy. Right arm appears contracted from previous episode. Assessment and Plan - Assessment and Plan (Free Text) Assessment: 80 yo F with PMHx including HTN, HLD, Recurrent DVT, CVA (2007), COPD, GERD brought in from [facility] due to sudden altered mental status admitted to ICU for AMS. Plan: Altered mental status - Likely due to CVA (ischemic) - chest x ray: Small right sided effusion, tiny left sided effusion. Repeat Xray was consistent w/ previous x ray. - EKG completed in ED: non specific St and t wave changes - Troponin x 1 neg - Neurology consulted, appreciate recommendations: ECHO - Intubated for airway protection - Initial CT and Ct repeat Ct in 24 hours, no hemorrhage noted - ABG: CO2:40, pO2:427, ABG ph: 7.42 - PT/INR: 12.1/1.16 -Hold xarelto for now -IVF NS at 75 cc/hr - Mannitol 500ml IV 100 mls/hr - Blood/urine cx pending -follow up labs Fever on admission: most likely secondary to ischemic stroke - Had a fever of 102 today at 12:00 pm - WBC increasing, afebrile initial 11.3 initial curently 13.5 - Urine culture no growth - F/U w/ blood culture - Rx: Tylenol PRN Hypertension - hold home meds due to intubation - monitor, avoid hypotension and avoid decreasing BP as long as systolic BP < 200 Hyperlipidemia - lipid panel completed - hold statin due to intubation GI prophylaxis - Pantoprazole 40 mg - Tube feeding DVT Prophylaxis -Clopidogrel 75 mg PO daily - SCD
--- NOTE | 2016-06-12 09:59 | RAD ---
HISTORY: intubated COMPARISON: No prior. FINDINGS: LUNGS: In situ ETT, tip of which lies approximately 3.8 cm above caprice. NGT is present, the tip of which go appears to lie in just below EG junction and could be advanced. Low lung volumes with crowded bronchovascular markings and mild bibasilar atelectasis . Questionable small bilateral effusions. . PLEURA: No pneumothorax apparent. CARDIOVASCULAR: Cardiomegaly. OSSEOUS STRUCTURES: Degenerative changes both shoulder girdles. VISUALIZED UPPER ABDOMEN: Normal. OTHER FINDINGS: None. IMPRESSION: ETT and NGT as above. Cardiomegaly. Low lung volumes, crowded bronchovascular markings and mild bibasilar atelectasis. Questionable small bilateral effusions.
--- NOTE | 2016-06-12 11:20 | CT ---
PROCEDURE: CT HEAD WITHOUT CONTRAST. HISTORY: RIGHT MCA STROKE COMPARISON: None comparison made with prior CT scan brain dated 06/11/2016. TECHNIQUE: Axial computed tomography images were obtained through the head/brain without intravenous contrast. Radiation dose: Total exam DLP = 1408. 30 mGy-cm. FINDINGS: HEMORRHAGE: No acute parenchymal, subarachnoid nor extra-axial hemorrhage. . BRAIN: Re- demonstrated is chronic appearing infarct left basal ganglia extending superiorly into the left coronal radiata/centrum semiovale. Moderate to significant diffuse/ confluent periventricular white matter ischemic changes are again seen extending peripherally into the deep and subcortical white matter of both cerebral hemispheres. Multiple more discrete chronic appearing lacunar type infarcts seen scattered about the deep and subcortical white matter as well as both basal nuclei and to a lesser degree brainstem. Large calcified mass left CP angle region unchanged. VENTRICLES: . Ex vacuo dilatation of left lateral ventricle unchanged. Mild generalized volume loss also unchanged. CALVARIUM: No acute calvarial fractures. Elliptical shaped calcification in the right parasagittal posterior superior parietal scalp region again noted. PARANASAL SINUSES: Mild mucosal thickening within the sphenoid sinus. Minor mucosal thickening noted within a few ethmoid air cells MASTOID AIR CELLS: Unremarkable as visualized. No inflammatory changes. OTHER FINDINGS: In situ ETT and NGT. . IMPRESSION: No acute intracranial hemorrhage. Chronic left basal ganglia/ coronal radiata infarct with chronic white matter as well as additional bilateral basal nuclei and brainstem ischemic changes. Generalized volume loss with ex vacuo dilatation of the left lateral ventricle. No change large calcified mass density left CP angle region.
[2016-06-12] MEDS: Acetaminophen 650mg/20.3ml solution UD GT PRN ×2 (12:10→20:10)
--- NOTE | 2016-06-12 15:38 | PN ---
DATE: 06/12/2016 NEUROLOGICAL PROBLEM: Unresponsiveness. PHYSICAL EXAMINATION: VITAL SIGNS: Blood pressure 144/69, mean arterial pressure of 94, respiratory rate 14, temperature 1 00.4, pulse rate 114. NEUROLOGIC: The patient is examined in the presence of the nurse. The patient does show periodic my oclonic jerk most pronounced over the left side every 20-30 seconds. Some roving conjugate gaze note d. Good corneal reflex. No response to visual threat. The left side increased tone than her right side. Triple flexion response on the plantar response on both sides. The rest of the examination is unchanged. Repeat CT of the head does not show any right cerebral cortex, new ischemic changes. RECOMMENDATIONS: Keppra 750 mg IV twice a day and EEG to be scheduled tomorrow and CT of the head al so to be done tomorrow for followup. No need to continue mannitol for now. That can be discontinued. Lalo Donis MD cc: [id number] TT: 06/12/2016 15:38:14 Confirmation # [id number] Dictation # [id number] [email or web address]
--- NOTE | 2016-06-12 19:53 | CP.PCM.PN ---
Subjective - Date & Time of Evaluation Date of Evaluation: 06/12/16 - Subjective Subjective: F/U Acute respiratory Failure. Intubated , sedated Objective - Vital Signs/Intake and Output Vital Signs (last 24 hours): Temp Pulse Resp BP Pulse Ox 101.9 F H 105 H 14 142/79 100 06/12/16 19:42 06/12/16 18:00 06/12/16 18:00 06/12/16 18:00 06/12/16 18:00 Intake and Output: 06/12/16 06/13/16 18:59 06:59 Intake Total 1530 Output Total 1600 Balance -70 - Medications Medications: Current Medications Acetaminophen (Tylenol 650mg/20.3ml Solution Ud) 650 mg GT Q4 PRN PRN Reason: Fever >100.4 F Last Admin: 06/12/16 12:10 Dose: 650 mg Albuterol/Ipratropium (Duoneb 3 Mg/0.5 Mg (3 Ml) Ud) 3 ml INH RQ6 [facility] Last Admin: 06/12/16 19:44 Dose: 3 ml Clopidogrel Bisulfate (Plavix) 75 mg PO DAILY [facility] Last Admin: 06/12/16 09:08 Dose: 75 mg Sodium Chloride (Sodium Chloride 0.9%) 1,000 mls @ 75 mls/hr IV .[id number] [facility] Last Admin: 06/12/16 18:37 Dose: 75 mls/hr Levetiracetam 750 mg/ Sodium (Chloride) 107.5 mls @ 215 mls/hr IVPB Q12 [facility] Pantoprazole Sodium (Protonix Inj) 40 mg IVP DAILY [facility] Last Admin: 06/12/16 12:12 Dose: 40 mg - Labs Labs: 06/12/16 05:30 06/12/16 05:30 PT 12.1 SECONDS (9.6-11.2) H 06/11/16 12:05 INR 1.16 (0.92-1.08) H 06/11/16 12:05 APTT 27.3 SECONDS (23.3-32.5) 06/11/16 12:05 - Constitutional Appears: Chronically Ill - Head Exam Head Exam: NORMAL INSPECTION - Eye Exam Additional comments: Eyes lateral gaze, pupils sluggish reaction to light - ENT Exam Additional comments: Intubated - Neck Exam Neck Exam: Normal Inspection - Respiratory Exam Respiratory Exam: Decreased Breath Sounds (at bases) - Cardiovascular Exam Cardiovascular Exam: REGULAR RHYTHM - GI/Abdominal Exam GI & Abdominal Exam: Soft, Normal Bowel Sounds - Extremities Exam Extremities Exam: Pedal Edema - Neurological Exam Additional comments: Intubated, sedated, unresponsive, tone increased left side - Skin Skin Exam: Normal Color, Warm Assessment and Plan (1) Acute respiratory failure Status: Acute (2) CVA (cerebral vascular accident) Status: Acute (3) COPD (chronic obstructive pulmonary disease) Status: Chronic (4) History of DVT (deep vein thrombosis) Status: Chronic - Assessment and Plan (Free Text) Plan: Ventilatory support, Duoneb , ICU TIME: 40 MIN.
[2016-06-13] MEDS: Albuterol-Ipratrop 3 mg / 0.5 (3 ml) UD INH SCH ×4 (01:08→20:09)
[2016-06-13 05:26] LABS: BASO % 0.2 % (0.0-2.0); EOS # 0.1 K/uL (0.0-0.7); EOS % 0.5 % (0.0-4.0); HEMATOCRIT 32.7 % (34.0-47.0); LYMPH # 0.3 K/uL (1.0-4.3); LYMPH % 3.2 % (20.0-40.0); MEAN CELL VOLUME 90.7 fl (81.0-99.0); MEAN CORPUSCULAR HEMOGLOBIN 30.4 pg (27.0-31.0); MEAN CORPUSCULAR HGB CONC 33.5 g/dL (33.0-37.0); MEAN PLATELET VOLUME 7.9 fl (7.2-11.7); MONO # 0.5 K/uL (0.0-0.8); MONO % 4.8 % (0.0-10.0); NEUT # 8.7 K/uL (1.8-7.0); NEUT % 91.3 % (50.0-75.0); PLATELET COUNT 192 K/uL (130-400); RED CELL DISTRIBUTION WIDTH 14.9 % (11.5-14.5); WHITE BLOOD COUNT 9.5 K/uL (4.8-10.8)
[2016-06-13] MEDS: Acetaminophen 650mg/20.3ml solution UD GT PRN (05:33)
[2016-06-13 05:34] LABS: ABG ALLEN TEST YES; ABG MECHANICAL RATE 12; ARTERIAL BLOOD GAS MODE A/C; ARTERIAL BLOOD GAS O2 CAPACITY 16.7 mL/dL (16-24); ARTERIAL BLOOD GAS O2 CONTENT 16.6 ML/dL (15-23); ARTERIAL BLOOD GAS PH 7.47 (7.35-7.45); ARTERIAL BLOOD GAS PO2 239 mm/Hg (80-100); ARTERIAL BLOOD HGB O2 SAT 96.9 % (95.0-98.0); ATERIAL BLOOD GAS PEEP 5; CARBOXYHEMOGLOBIN 1.6 % (0.5-1.5); HHB 0.4 % (0.0-5.0); METHEMOGLOBIN 1.1 % (0.0-3.0)
[2016-06-13 06:01] LABS: CHLORIDE 103 mmol/L (98-107); SODIUM 138 mmol/l (132-148)
[2016-06-13 06:02] LABS: POTASSIUM 3.7 MMOL/L (3.6-5.0)
[2016-06-13 06:04] LABS: GFR AFRICAN-AMERICAN > 60
[2016-06-13 06:05] LABS: BLOOD UREA NITROGEN 9 mg/dl (7-17); CALCIUM 8.6 mg/dL (8.4-10.2); CARBON DIOXIDE 25 mmol/L (22-30); GLUCOSE,RANDOM 165 mg/dL (65-105)
--- NOTE | 2016-06-13 07:44 | CP.PCM.PN ---
Subjective - Date & Time of Evaluation Date of Evaluation: 06/13/16 Time of Evaluation: 07:30 - Subjective Subjective: 80 yo F was seen at bedside, intubated. Vent settings: AC, Fio2:40, VT 500, 12/m , PEEP 5 - Pt was opening eyes on verbal command. NG tube in place. Urine appears yellow and clear in color. 150ml of urine seen at bedside. Produced 2700 last 24 hours. - PT had temperature of 102 yesterday at noon and 101.2 overnight - Spoke w/ family over the phone with Dr. Arias and discussed setting a family meeting. Objective - Vital Signs/Intake and Output Vital Signs (last 24 hours): Temp Pulse Resp BP Pulse Ox 99.7 F H 111 H 22 160/78 H 100 06/13/16 06:40 06/13/16 06:00 06/13/16 06:00 06/13/16 06:00 06/13/16 06:00 Intake and Output: 06/13/16 06/13/16 06:59 18:59 Intake Total 1265 Output Total 1170 Balance 95 - Medications Medications: Current Medications Acetaminophen (Tylenol 650mg/20.3ml Solution Ud) 650 mg GT Q4 PRN PRN Reason: Fever >100.4 F Last Admin: 06/13/16 05:33 Dose: 650 mg Albuterol/Ipratropium (Duoneb 3 Mg/0.5 Mg (3 Ml) Ud) 3 ml INH RQ6 [facility] Last Admin: 06/13/16 07:27 Dose: 3 ml Clopidogrel Bisulfate (Plavix) 75 mg PO DAILY [facility] Last Admin: 06/12/16 09:08 Dose: 75 mg Sodium Chloride (Sodium Chloride 0.9%) 1,000 mls @ 75 mls/hr IV .[id number] [facility] Last Admin: 06/12/16 18:37 Dose: 75 mls/hr Levetiracetam 750 mg/ Sodium (Chloride) 107.5 mls @ 215 mls/hr IVPB Q12 [facility] Last Admin: 06/12/16 21:14 Dose: 215 mls/hr Pantoprazole Sodium (Protonix Inj) 40 mg IVP DAILY [facility] Last Admin: 06/12/16 12:12 Dose: 40 mg - Labs Labs: 06/13/16 04:35 06/13/16 04:35 PT 12.1 SECONDS (9.6-11.2) H 06/11/16 12:05 INR 1.16 (0.92-1.08) H 06/11/16 12:05 APTT 27.3 SECONDS (23.3-32.5) 06/11/16 12:05 - Constitutional Appears: Chronically Ill - Head Exam Head Exam: ATRAUMATIC, NORMAL INSPECTION, NORMOCEPHALIC - Eye Exam Eye Exam: PERRL Pupil Exam: PERRL - Respiratory Exam Respiratory Exam: Clear to Ausculation Bilateral Additional comments: On ventilator - Cardiovascular Exam Cardiovascular Exam: REGULAR RHYTHM, +S1, +S2 - GI/Abdominal Exam GI & Abdominal Exam: Soft - Neurological Exam Neurological Exam: Awake (Respond to verbal stimuli) Neuro motor strength exam: Left Upper Extremity: 0 (Flacid), Right Upper Extremity: 0 (Contracted from previous stroke) Assessment and Plan - Assessment and Plan (Free Text) Assessment: 80 yo F with PMHx including HTN, HLD, Recurrent DVT, CVA (2007), COPD, GERD brought in from [facility] due to sudden altered mental status admitted to ICU for AMS. Plan: Altered mental status - Likely due to CVA (ischemic) - chest x ray: Small right sided effusion, tiny left sided effusion. Repeat Xray was consistent w/ previous x ray. - EKG completed in ED: non specific St and t wave changes - Troponin x 1 neg - Neurology consulted, appreciate recommendations: ECHO - Intubated for airway protection - Initial CT and Ct repeat Ct in 24 hours, no hemorrhage noted but additional bilateral basal nuclei and brainstem ischemic changes - ABG: CO2:36, pO2:239, ABG ph: 7.47 - PT/INR: 12.1/1.16 -Hold xarelto for now -IVF NS at 75 cc/hr - Mannitol D/C -follow up labs Fever on admission: most likely secondary to ischemic stroke - Had a fever of 102 yesterday and 101.9 at night time - WBC trending down - Urine culture no growth - Blood culture no growth in 24 hours - Rx: Tylenol PRN Hypertension - hold home meds due to intubation - monitor, avoid hypotension and avoid decreasing BP as long as systolic BP < 200 Hyperlipidemia - lipid panel completed - Atorvastatin 10 mg NG HS H/O Seizures: - Kepra 750mg BID GI prophylaxis - Pantoprazole 40 mg - Tube feeding DVT Prophylaxis - Rivaroxaban 20 mg PO - SCD
--- NOTE | 2016-06-13 08:34 | CON ---
DATE: 06/11/2016 REASON FOR CONSULTATION: Unresponsiveness. CHIEF COMPLAINT: The patient was brought in from care home with a history of Seizure with right lateral gaze preference. From neurological point of view , I was called in to evaluate her for further management. HISTORY OF PRESENTING ILLNESS: The patient is a 80-year-old female who is a care home resident brought in to [facility], being transferred to the care home with a history of stroke. In the care home the patient found to be unresponsiveness with abnormal movement of her eyes to the right side. No objective evidence of falls, no involuntary movements, no trauma to head and neck. No history of bowel and bladder incontinence at the scene. No similar episodes happened in the past. The patient was called in a code stroke. Since the patient was on Xarelto, the patient was not a candidate for tPA. 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 Another small vessel stroke the same region manifesting with worsening right-side weakness. Hypertension, dyslipidemia, recurrent DVT, stroke in 2007, COPD, gastroesophageal reflux disease. ALLERGIES: No known allergies. VITAL SIGNS: Blood pressure 154/83, mean arterial pressure of 106, respiratory rate 24, temperature 99.4, with a pulse rate 106. NECK: Supple. Systolic murmur on auscultation. EXTREMITIES: Both legs are externally rotated. NEUROLOGIC EXAMINATION: The patient is examined in the presence of her daughter. The patient verbally nonresponsive. On noxious stimuli the patient responds to show decerebrating posture. EYES: Open, right lateral gaze preponderance. No response to visual threat. Pupils seem to be sluggishly reactive to light. Corneal reflex present. Gag could to be elicited. TONE: Increased, left more than her right side. DEEP TENDON REFLEXES: Hyperreflexic with a Babinski sign on both sides. COORDINATION AND GAIT: Deferred at this time because of the above description. The patient is intubated. CONCLUSION: Upon reviewing her history and neurological examination, the patient has been presenting with right cortical dysfunction manifesting with left more than right spastic hemiplegia. This is a new episode of this clinical picture. This is probably the right MCA territory large vessel embolic stroke. Other possible cause could be non convulsive status BLOOD WORKUP: WBC 11.3, hemoglobin 11.6, hematocrit 35.9, platelet 278. PT 12.1, INR 1.16, PTT 27.3. Sodium 136, potassium 4.6, chloride 99, bicarbonate 29, BUN 16, creatinine 0.7. GFR more than 60, glucose 122. Liver functions are normal. Cholesterol 161, LDL 97, HDL 39. Urine analysis negative. CT of the head showed encephalomalacia over left MCA territory, and left basal ganglia stroke. No other acute pathologies noted. RECOMMENDATIONS: 1. The patient should be given mannitol to decrease the ICP. 2. Keep the mean arterial pressure around 100. 3. Repeat CT of the head tomorrow morning. Follow progress stroke. 4. NG tube insertion and continue all medication as she has been taking. Plavix is added in addition to the other medication, and aspirin should be discontinued. 5.EEG to assess electrical activities. The patient also recommended to be seen by fixture maker, as per the attending physician. DVT prophylaxis to be continued. The patient's condition has been well discussed with daughter. The patient's critical illness been explained to her. She is aware of her illness. Lalo Donis MD cc: [id number] TT: 06/11/2016 23:30:42 Confirmation # [id number] Dictation # [id number] MTDD
[2016-06-13] MEDS: Sodium Chloride 0.9% 1,000 ML IV SCH (09:15)
--- NOTE | 2016-06-13 12:38 | RAD ---
HISTORY: Intubated. COMPARISON: 06/12/2016 FINDINGS: LUNGS: No active pulmonary disease. PLEURA: No significant pleural effusion identified, no pneumothorax apparent. CARDIOVASCULAR: The endotracheal tube unchanged in position. Nasogastric tube present. Please note that most distal aspect of nasogastric tube cannot be visualized due to to exposure. OSSEOUS STRUCTURES: Bilateral glenohumeral osteoarthritis. VISUALIZED UPPER ABDOMEN: Normal. OTHER FINDINGS: None. IMPRESSION: No active disease.
[2016-06-13 13:38] LABS: BASOPHIL 1 % (0-2); NEUTROPHIL 91 % (42-75); TOTAL CELLS COUNTED 100
--- NOTE | 2016-06-13 15:32 | CP.CCUPN ---
CCU Subjective - Physician Review Events Since Last Encounter (Free Text): 06/13/16 15:48 The Patient was seen and examined at the bedside in the ICU, Medical records reviewed, all clinical/lab/hemodynamic/radiographic data were reviewed and management issues were discussed and formulated, 80 years old female with PMHx of HTN, Hypercholesterolemia, Anxiety, Arthritis, Asthma, COPD, CVA, Depression, Deep Vein Thrombosis, Gastritis, Osteoporosis, Pneumonia, TIA and multiple CVA in the past (on xarelto) who was brought in by EMS for a sudden Mental status change, She was at physical therapy and became Unresponsive, unable to talk In the ER, she is unresponsive and actually posturing while in ER, so she was intubated for airway protection Pt currently orally intubated and sedated, not breathing over the vent, opens eyes spontaneously, not following verbal command, left arm and leg is flaccid. 06/13/16 16:06 06/12/2016: CT HEAD WITHOUT CONTRAST. IMPRESSION: No acute intracranial hemorrhage. Chronic left basal ganglia/ coronal radiata infarct with chronic white matter as well as additional bilateral basal nuclei and brainstem ischemic changes. Generalized volume loss with ex vacuo dilatation of the left lateral ventricle. No change large calcified mass density left CP angle region. CCU Objective - Vital Signs / Intake & Output Vital Signs (Last 4 hours): Vital Signs Temp Pulse Resp BP Pulse Ox 06/13/16 12:00 98.6 F 101 H 20 166/81 H 100 Intake and Output (Last 8hrs): Intake & Output 06/13/16 06/13/16 06/13/16 06:59 14:59 22:59 Intake Total 940 935 Output Total 1100 Balance -160 935 Intake: IV 600 375 Intake, Piggyback 100 Tube Feeding 340 360 Free Water Flush 100 Output: Urine 1100 Urethral ([place]) 1100 Other: # Bowel Movements 1 - Medications Active Medications: Active Medications Generic Name Dose Route Start Last Admin Trade Name Freq PRN Reason Stop Dose Admin Acetaminophen 650 mg 06/12/16 11:42 06/13/16 05:33 Tylenol 650mg/20.3ml Solution Ud GT 650 mg Q4 PRN Administration Fever >100.4 F Albuterol/Ipratropium 3 ml 06/12/16 03:00 06/13/16 13:25 Duoneb 3 Mg/0.5 Mg (3 Ml) Ud INH 3 ml RQ6 [facility] Administration Atorvastatin Calcium 10 mg 06/13/16 22:00 Lipitor NG HS [facility] Clopidogrel Bisulfate 75 mg 06/12/16 09:00 06/13/16 09:34 Plavix PO 75 mg DAILY [facility] Administration Sodium Chloride 1,000 mls @ 75 mls/hr 06/11/16 15:21 06/13/16 09:15 Sodium Chloride 0.9% IV 75 mls/hr .[id number] [facility] Administration Levetiracetam 750 mg/ Sodium 107.5 mls @ 215 mls/hr 06/12/16 21:00 06/13/16 10: 24 Chloride IVPB 215 mls/hr Q12 [facility] Administration Pantoprazole Sodium 40 mg 06/12/16 11:45 06/13/16 09:33 Protonix Inj IVP 40 mg DAILY [facility] Administration Rivaroxaban 20 mg 06/13/16 18:00 Xarelto PO QPM [facility] Protocol - Patient Studies Lab Studies: Microbiology Studies 06/11/16 19:31 MRSA Culture (Admit) - Final Naris MRSA NOT DETECTED Lab Studies 06/13/16 06/13/16 Range/Units 05:28 04:35 WBC 9.5 (4.8-10.8) K/uL RBC 3.61 L (3.80-5.20) Mil/uL Hgb 11.0 L (12.0-16.0) g/dL Hct 32.7 L (34.0-47.0) % MCV 90.7 (81.0-99.0) fl MCH 30.4 (27.0-31.0) pg MCHC 33.5 (33.0-37.0) g/dL RDW 14.9 H (11.5-14.5) % Plt Count 192 (130-400) K/uL MPV 7.9 (7.2-11.7) fl Neut % (Auto) 91.3 H (50.0-75.0) % Lymph % (Auto) 3.2 L (20.0-40.0) % [place] % (Auto) 4.8 (0.0-10.0) % Eos % (Auto) 0.5 (0.0-4.0) % Baso % (Auto) 0.2 (0.0-2.0) % Neut # 8.7 H (1.8-7.0) K/uL Lymph # 0.3 L (1.0-4.3) K/uL [place] # 0.5 (0.0-0.8) K/uL Eos # 0.1 (0.0-0.7) K/uL Baso # 0.0 (0.0-0.2) K/uL Neutrophils % (Manual) 91 H (42-75) % Band Neutrophils % 1 (0-2) % Lymphocytes % (Manual) 3 L (20-50) % Monocytes % (Manual) 4 (0-10) % Basophils % (Manual) 1 (0-2) % Platelet Estimate Normal (NORMAL) Hypochromasia (manual) Slight Anisocytosis (manual) Slight pCO2 36 (35-45) mm/Hg pO2 239 H (80-100) mm/Hg HCO3 27.0 (21-28) mmol/L ABG pH 7.47 H (7.35-7.45) ABG Total CO2 27.3 (22-28) mmol/L ABG O2 Saturation 99.6 H (95-98) % ABG O2 Content 16.6 (15-23) ML/dL ABG Base Excess 2.6 (-2.0-3.0) mmol/L ABG Hemoglobin 11.8 (11.7-17.4) g/dL ABG Carboxyhemoglobin 1.6 H (0.5-1.5) % POC ABG HHb (Measured) 0.4 (0.0-5.0) % ABG Methemoglobin 1.1 (0.0-3.0) % ABG O2 Capacity 16.7 (16-24) mL/dL Jean-Paul Test Yes A-a O2 Difference 73.0 mm/Hg Hgb O2 Saturation 96.9 (95.0-98.0) % Vent Mode A/c Mechanical Rate 12 FiO2 50.0 % Tidal Volume 500 PEEP 5 Sodium 138 (132-148) mmol/l Potassium 3.7 (3.6-5.0) MMOL/L Chloride 103 (98-107) mmol/L Carbon Dioxide 25 (22-30) mmol/L Anion Gap 13 (10-20) BUN 9 (7-17) mg/dl Creatinine 0.7 (0.7-1.2) mg/dL Est GFR ( Amer) > 60 Est GFR (Non-Af Amer) > 60 Random Glucose 165 H (65-105) mg/dL Calcium 8.6 (8.4-10.2) mg/dL Laboratory Results - last 24 hr 06/13/16 06/13/16 04:35 05:28 WBC 9.5 RBC 3.61 L Hgb 11.0 L Hct 32.7 L MCV 90.7 MCH 30.4 MCHC 33.5 RDW 14.9 H Plt Count 192 MPV 7.9 Neut % (Auto) 91.3 H Lymph % (Auto) 3.2 L [place] % (Auto) 4.8 Eos % (Auto) 0.5 Baso % (Auto) 0.2 Neut # 8.7 H Lymph # 0.3 L [place] # 0.5 Eos # 0.1 Baso # 0.0 Neutrophils % (Manual) 91 H Band Neutrophils % 1 Lymphocytes % (Manual) 3 L Monocytes % (Manual) 4 Basophils % (Manual) 1 Platelet Estimate Normal Hypochromasia (manual) Slight Anisocytosis (manual) Slight pCO2 36 pO2 239 H HCO3 27.0 ABG pH 7.47 H ABG Total CO2 27.3 ABG O2 Saturation 99.6 H ABG O2 Content 16.6 ABG Base Excess 2.6 ABG Hemoglobin 11.8 ABG Carboxyhemoglobin 1.6 H POC ABG HHb (Measured) 0.4 ABG Methemoglobin 1.1 ABG O2 Capacity 16.7 Jean-Paul Test Yes A-a O2 Difference 73.0 Hgb O2 Saturation 96.9 Vent Mode A/c Mechanical Rate 12 FiO2 50.0 Tidal Volume 500 PEEP 5 Sodium 138 Potassium 3.7 Chloride 103 Carbon Dioxide 25 Anion Gap 13 BUN 9 Creatinine 0.7 Est GFR ( Amer) > 60 Est GFR (Non-Af Amer) > 60 Random Glucose 165 H Calcium 8.6 Fingerstick Blood Sugar Results: 123 Assessment/Plan (1) Acute respiratory failure Current Visit: Yes Status: Acute Priority: High (2) CVA (cerebral vascular accident) Current Visit: Yes Status: Acute Priority: High (3) Asthmatic bronchitis Current Visit: No Status: Acute (4) CHF (congestive heart failure) Current Visit: No Status: Acute (5) COPD (chronic obstructive pulmonary disease) Current Visit: No Status: Chronic Priority: Medium (6) History of DVT (deep vein thrombosis) Current Visit: No Status: Chronic Priority: Medium Comment: -Patient with multiple DVT's in past -Had IVC filter placed - Per history placed twice - 1998,2013 -continue with xarelto (7) History of CVA (cerebrovascular accident) Current Visit: No Status: Chronic Comment: -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 -Gabapentin 300mg PO TID (8) Hyperlipidemia Current Visit: No Status: Chronic Comment: -Continue lipitor 10mg (9) Hypertension Current Visit: No Status: Chronic Comment: -Continue Lisinorpil 20 mg po daily -Continue Procardia XL 90 mg po daily -Continue HCTZ 12.5mg PO Qdaily - Assessment and Plan (Free Text) Assessment: Patient remains intubated, totally unresponsive, family meeting performed with patient sons/daughter/HCP Vijay (grandson) inpresence of [facility], they all in agreeement [place] do not want her to suffer, she has clearly indicated to them that she abraham not want any agressive measres, family in agreement about withdrwal of care, discontinue mechanical vent and all treatements today. The plans was also discussed with Nimisha and Nandini (daughters) over the phone.
--- NOTE | 2016-06-13 16:22 | CP.PCM.PN ---
Subjective - Date & Time of Evaluation Date of Evaluation: 06/13/16 - Subjective Subjective: Unresponsive Objective - Vital Signs/Intake and Output Vital Signs (last 24 hours): Temp Pulse Resp BP Pulse Ox 98.6 F 101 H 20 166/81 H 100 06/13/16 12:00 06/13/16 12:00 06/13/16 12:00 06/13/16 12:00 06/13/16 12:00 Intake and Output: 06/13/16 06/13/16 06:59 18:59 Intake Total 1265 935 Output Total 1170 Balance 95 935 - Medications Medications: Current Medications Acetaminophen (Tylenol 650mg/20.3ml Solution Ud) 650 mg GT Q4 PRN PRN Reason: Fever >100.4 F Last Admin: 06/13/16 05:33 Dose: 650 mg Albuterol/Ipratropium (Duoneb 3 Mg/0.5 Mg (3 Ml) Ud) 3 ml INH RQ6 [facility] Last Admin: 06/13/16 13:25 Dose: 3 ml Atorvastatin Calcium (Lipitor) 10 mg NG HS [facility] Clopidogrel Bisulfate (Plavix) 75 mg PO DAILY [facility] Last Admin: 06/13/16 09:34 Dose: 75 mg Sodium Chloride (Sodium Chloride 0.9%) 1,000 mls @ 75 mls/hr IV .[id number] [facility] Last Admin: 06/13/16 09:15 Dose: 75 mls/hr Levetiracetam 750 mg/ Sodium (Chloride) 107.5 mls @ 215 mls/hr IVPB Q12 [facility] Last Admin: 06/13/16 10:24 Dose: 215 mls/hr Pantoprazole Sodium (Protonix Inj) 40 mg IVP DAILY [facility] Last Admin: 06/13/16 09:33 Dose: 40 mg Rivaroxaban (Xarelto) 20 mg PO QPM [facility] PRN Reason: Protocol - Labs Labs: 06/13/16 04:35 06/13/16 04:35 PT 12.1 SECONDS (9.6-11.2) H 06/11/16 12:05 INR 1.16 (0.92-1.08) H 06/11/16 12:05 APTT 27.3 SECONDS (23.3-32.5) 06/11/16 12:05 - Constitutional Appears: Chronically Ill - Head Exam Head Exam: NORMAL INSPECTION - Eye Exam Additional comments: Slugish reaction to light, conjugated gaze - ENT Exam Additional comments: intubated - Neck Exam Neck Exam: Normal Inspection - Respiratory Exam Respiratory Exam: Decreased Breath Sounds - Cardiovascular Exam Cardiovascular Exam: REGULAR RHYTHM - GI/Abdominal Exam GI & Abdominal Exam: Soft, Normal Bowel Sounds - Extremities Exam Extremities Exam: Pedal Edema - Back Exam Back Exam: NORMAL INSPECTION - Neurological Exam Additional comments: Unresponsive - Skin Skin Exam: Warm Assessment and Plan (1) Acute respiratory failure Status: Acute (2) CVA (cerebral vascular accident) Status: Acute (3) COPD (chronic obstructive pulmonary disease) Status: Chronic (4) History of DVT (deep vein thrombosis) Status: Chronic - Assessment and Plan (Free Text) Plan: Continue ventilatory support , CXR no active disease , ICU TIME: 40 MIN.
[2016-06-13] MEDS: Morphine 100 MG in Sodium Chloride 0.9% 100 ML IVPB SCH (17:34)
--- NOTE | 2016-06-13 19:15 | PCM.PROC ---
Procedures Attestation:: I certify that I have explained the specified Operation(s) or Procedure(s), risks, benefits and reasonable alternatives to the Patient and/or other person responsible. The opportunity was given to ask questions and all questions answered - Extubation Patient Condition: Patient has been successfully extubated and assessed Oxygen Therapy: O2 via Nasal Cannula Patient Tolerated Procedure: No Complications Additional Comments: As per family request, Patient was terminally extubated at 6:50 PM, she received IV Morphine anf started on Morphine drip
--- NOTE | 2016-06-13 22:44 | EEG ---
DATE: 06/12/2016 This is a 16-channel electroencephalogram of an obtunded adult. The study was performed at the [facility] in the ICU. The resting electroencephalogram consists of diffuse 30-40 microvolt 5-7 Hz theta activities continuo usly noted without any changing in frequency and intensity. The photic stimulation did not evoke dri ving response noted at 2-20 Hz. IMPRESSION: This is an abnormal electroencephalogram because of persistent slowing throughout the record suggesti ve of bilateral cerebral dysfunction. This is probably secondary to metabolic vascular or degenerati ve process. Please correlate the finding with the neurological and radiological studies. Lalo Donis MD cc: [id number] TT: 06/13/2016 22:43:00 Confirmation # [id number] Dictation # [id number]
[2016-06-13] MEDS ORDERED: Albuterol-Ipratrop 3 mg / 0.5 (3 ml) UD INH STA (22:55)
[2016-06-14] MEDS: Albuterol-Ipratrop 3 mg / 0.5 (3 ml) UD INH SCH ×4 (01:50→19:37)
--- NOTE | 2016-06-14 12:02 | CP.PCM.PN ---
Subjective - Date & Time of Evaluation Date of Evaluation: 06/14/16 Time of Evaluation: 07:30 - Subjective Subjective: - Discussed patient's condition with the family in present of farm supervisor Dr Mcdonnell and Dr Eduardo Barr; KHUSHBOO nicolas decided to withdraw life support; only comfort care from this point; Family agreed to his decision. Patient was extubated yesterday evening. - Today she was seen at bedside, on a non rebreathable mask, seemed in some respiratory distress. Urine output: 1450 im past 24 hours Objective - Vital Signs/Intake and Output Vital Signs (last 24 hours): Temp Pulse Resp BP Pulse Ox 100.9 F H 104 H 16 81/53 L 95 06/14/16 08:00 06/14/16 08:00 06/14/16 08:00 06/14/16 08:00 06/14/16 08:00 Intake and Output: 06/14/16 06/14/16 06:59 18:59 Output Total 450 Balance -450 - Medications Medications: Current Medications Acetaminophen (Tylenol 650 Mg Supp) 650 mg [place] Q4 PRN PRN Reason: Fever >100.4 F Last Admin: 06/13/16 20:08 Dose: 650 mg Albuterol/Ipratropium (Duoneb 3 Mg/0.5 Mg (3 Ml) Ud) 3 ml INH RQ6 LIBRA Last Admin: 06/14/16 08:55 Dose: 3 ml Morphine Sulfate 100 mg/ (Sodium Chloride) 104 mls @ 3.12 mls/hr IVPB .Q24H LIBRA ; 3 MG/HR PRN Reason: Protocol Last Titration: 06/14/16 01:00 Dose: 6 mg/hr Lorazepam (Ativan) 0.5 mg IVP Q2 PRN PRN Reason: Agitation Lorazepam (Ativan) 2 mg IVP Q6 PRN PRN Reason: Agitation Last Admin: 06/13/16 22:40 Dose: 2 mg - Labs Labs: 06/13/16 04:35 06/13/16 04:35 PT 12.1 SECONDS (9.6-11.2) H 06/11/16 12:05 INR 1.16 (0.92-1.08) H 06/11/16 12:05 APTT 27.3 SECONDS (23.3-32.5) 06/11/16 12:05 - Constitutional Appears: Chronically Ill - Head Exam Head Exam: ATRAUMATIC, NORMAL INSPECTION, NORMOCEPHALIC - Eye Exam Eye Exam: PERRL Pupil Exam: PERRL - Respiratory Exam Respiratory Exam: Decreased Breath Sounds - Cardiovascular Exam Cardiovascular Exam: REGULAR RHYTHM, +S1, +S2 - GI/Abdominal Exam GI & Abdominal Exam: Soft - Extremities Exam Extremities Exam: Pedal Edema - Neurological Exam Neurological Exam: absent: Alert, Awake Neuro motor strength exam: Left Upper Extremity: 0 (flacid), Right Upper Extremity: 0 (Contracted rt arm) Assessment and Plan - Assessment and Plan (Free Text) Assessment: - Assessment and Plan (Free Text) Assessment: 80 yo F with PMHx including HTN, HLD, Recurrent DVT, CVA (2007), COPD, GERD brought in from [facility] due to sudden altered mental status admitted to ICU for AMS. Plan: Altered mental status, secondary to CVA - S/P extubated, S/P withdrawl of life support as per family - CT/MRI; shows right MCA infarct, hx of cva x2 previously - reviewed EEG/ECHO - discussed patient's condition with the family in present of farm supervisor Dr Mcdonnell and Dr Eduardo Barr; KHUSHBOO nicolas decided to withdraw life support; only comfort care from this point; Family agreed to his decision - c/w below supportive measure as requested per family: - IV Morphine 3mg/ hr - Lorazepan 2mg IVP Q6 PRN Mild Persistent asthma - Albuterol/Ipratropium Q6 Fever on admission: most likely secondary to ischemic stroke - tylenol [place] PRN Hypertension - hold meds - monitor Hyperlipidemia - hold medication H/O Seizures: - hold medication GI prophylaxis - hold medication DVT Prophylaxis - hold medication
--- NOTE | 2016-06-14 12:43 | CP.CCUPN ---
CCU Subjective - Physician Review Events Since Last Encounter (Free Text): 06/14/16 12:36 The Patient was seen and examined at the bedside in the ICU, Medical records reviewed, All clinical/lab/hemodynamic/radiographic data were reviewed and management issues were discussed and formulated, 80 years old female with PMHx of HTN, Hypercholesterolemia, Anxiety, Arthritis, Asthma, COPD, CVA, Depression, Deep Vein Thrombosis, Gastritis, Osteoporosis, Pneumonia, TIA and multiple CVA in the past (on xarelto) who was brought in by EMS for a sudden Mental status change, She was at physical therapy and became Unresponsive, unable to talk In the ER, she is unresponsive and actually posturing while in ER, so she was intubated for airway protection 06/13 family meeting performed with patient sons/daughter/HCP Vijay (grandson) in presence of PMD, all family members are in agreement that they do not want her to suffer, she has clearly indicated to them that she abraham not want any aggressive measures if she is in this kine of medical conditions, family in agreement about withdrwal of care, discontinue mechanical vent and all treatments Patient was terminally extubated last night around 6:15PM Pt currently on morphine drip, totally unresponsive, not breathing over the vent , opens eyes spontaneously, not following verbal command, left arm and leg is flaccid. Plan to transfer out of ICU CCU Objective - Vital Signs / Intake & Output Intake and Output (Last 8hrs): Intake & Output 06/13/16 06/14/16 06/14/16 22:59 06:59 14:59 Output Total 1000 450 Balance -1000 -450 Output: Urine 1000 450 Urethral (Gil[place]) 1000 450 Other: # Bowel Movements 1 - Physical Exam Head: Positive for: Atraumatic, Normocephalic Pupils: Positive for: Sluggish Conjunctiva: Positive for: Normal Mouth: Positive for: Moist Mucous Membranes Neck: Positive for: Trachea Midline. Negative for: JVD, Lymphadenopathy Respiratory/Chest: Positive for: Clear to Auscultation, Good Air Exchange. Negative for: Respiratory Distress, Accessory Muscle Use Cardiovascular: Positive for: Regular Rate and Rhythm, Normal S1, S2, Peripheal Pulses Present. Negative for: Murmurs Abdomen: Positive for: Normal Bowel Sounds. Negative for: Tenderness, Distention, Peritoneal Signs - Medications Active Medications: Active Medications Generic Name Dose Route Start Last Admin Trade Name Freq PRN Reason Stop Dose Admin Acetaminophen 650 mg 06/13/16 18:32 06/13/16 20:08 Tylenol 650 Mg Supp MO 650 mg Q4 PRN Administration Fever >100.4 F Albuterol/Ipratropium 3 ml 06/12/16 03:00 06/14/16 08:55 Duoneb 3 Mg/0.5 Mg (3 Ml) Ud INH 3 ml RQ6 LIBRA Administration Morphine Sulfate 100 mg/ 104 mls @ 3.12 mls/hr 06/13/16 17:15 06/14/16 01:00 Sodium Chloride IVPB 6 mg/hr .Q24H LIBRA Titration Protocol 3 MG/HR Lorazepam 0.5 mg 06/13/16 18:32 Ativan IVP Q2 PRN Agitation Lorazepam 2 mg 06/13/16 19:23 06/13/16 22:40 Ativan IVP 2 mg Q6 PRN Administration Agitation - Patient Studies Lab Studies: Microbiology Studies 06/12/16 21:00 Urine Culture - Final Urine,[place] No Growth (<1,000 CFU/ML) 06/12/16 20:30 Blood Culture - Preliminary Blood NO GROWTH AFTER 24 HOURS 06/12/16 20:30 Blood Culture - Preliminary Blood NO GROWTH AFTER 24 HOURS 06/11/16 19:31 MRSA Culture (Admit) - Final Naris MRSA NOT DETECTED Lab Studies 06/13/16 Range/Units 04:35 Neutrophils % (Manual) 91 H (42-75) % Band Neutrophils % 1 (0-2) % Lymphocytes % (Manual) 3 L (20-50) % Monocytes % (Manual) 4 (0-10) % Basophils % (Manual) 1 (0-2) % Platelet Estimate Normal (NORMAL) Hypochromasia (manual) Slight Anisocytosis (manual) Slight Laboratory Results - last 24 hr 06/13/16 04:35 Neutrophils % (Manual) 91 H Band Neutrophils % 1 Lymphocytes % (Manual) 3 L Monocytes % (Manual) 4 Basophils % (Manual) 1 Platelet Estimate Normal Hypochromasia (manual) Slight Anisocytosis (manual) Slight Fingerstick Blood Sugar Results: 123 Assessment/Plan (1) Acute respiratory failure Current Visit: Yes Status: Acute Priority: High (2) Unresponsive state Current Visit: Yes Status: Acute (3) CVA (cerebral vascular accident) Current Visit: Yes Status: Acute Priority: High (4) CHF (congestive heart failure) Current Visit: No Status: Acute (5) COPD (chronic obstructive pulmonary disease) Current Visit: No Status: Chronic Priority: Medium (6) History of DVT (deep vein thrombosis) Current Visit: No Status: Chronic Priority: Medium Comment: -Patient with multiple DVT's in past -Had IVC filter placed - Per history placed twice - 1998,2013 -continue with xarelto (7) History of CVA (cerebrovascular accident) Current Visit: No Status: Chronic Comment: -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 -Gabapentin 300mg PO TID (8) Hyperlipidemia Current Visit: No Status: Chronic Comment: -Continue lipitor 10mg
[2016-06-14] MEDS: Morphine 100 MG in Sodium Chloride 0.9% 100 ML IVPB SCH (13:09)
[2016-06-14] MEDS ORDERED: Chlorhexidine Gluconate 1 APPL/PKT TP ONE (14:28)
[2016-06-15] MEDS: Albuterol-Ipratrop 3 mg / 0.5 (3 ml) UD INH SCH ×4 (01:53→19:14)
[2016-06-15] MEDS: Morphine 100 MG in Sodium Chloride 0.9% 100 ML IVPB SCH (04:05)
--- NOTE | 2016-06-15 09:14 | CP.PCM.PN ---
Subjective - Date & Time of Evaluation Date of Evaluation: 06/15/16 Time of Evaluation: 07:25 - Subjective Subjective: 80 YO F/ s/p extubation was trasfered from ICU to med/ surg for comfort care measures. - Pt was seen at bedside on non rebreathable mask. Difficult to arouse, opened eyes spontaneously. Does not respond to verbal commands. As per nurse no overnight activates were noted. Objective - Vital Signs/Intake and Output Vital Signs (last 24 hours): Temp Pulse Resp BP Pulse Ox 99.5 F 85 22 102/61 95 06/15/16 08:25 06/15/16 08:25 06/15/16 08:25 06/15/16 08:25 06/15/16 08:25 - Medications Medications: Current Medications Acetaminophen (Tylenol 650 Mg Supp) 650 mg [place] Q4 PRN PRN Reason: Fever >100.4 F Last Admin: 06/15/16 02:27 Dose: 650 mg Albuterol/Ipratropium (Duoneb 3 Mg/0.5 Mg (3 Ml) Ud) 3 ml INH RQ6 LIBRA Last Admin: 06/15/16 07:52 Dose: 3 ml Morphine Sulfate 100 mg/ (Sodium Chloride) 104 mls @ 3.12 mls/hr IVPB .Q24H LIBRA ; 3 MG/HR PRN Reason: Protocol Last Admin: 06/15/16 04:05 Dose: 6 mls/hr Lorazepam (Ativan) 0.5 mg IVP Q2 PRN PRN Reason: Agitation Lorazepam (Ativan) 2 mg IVP Q6 PRN PRN Reason: Agitation Last Admin: 06/13/16 22:40 Dose: 2 mg - Labs Labs: 06/13/16 04:35 06/13/16 04:35 PT 12.1 SECONDS (9.6-11.2) H 06/11/16 12:05 INR 1.16 (0.92-1.08) H 06/11/16 12:05 APTT 27.3 SECONDS (23.3-32.5) 06/11/16 12:05 - Constitutional Appears: Chronically Ill - Head Exam Head Exam: ATRAUMATIC, NORMAL INSPECTION, NORMOCEPHALIC - Eye Exam Eye Exam: PERRL Pupil Exam: PERRL - Respiratory Exam Respiratory Exam: Wheezes Additional comments: Decreased breath sounds b/l - Cardiovascular Exam Cardiovascular Exam: REGULAR RHYTHM, +S1, +S2 - GI/Abdominal Exam GI & Abdominal Exam: Soft - Neurological Exam Neurological Exam: absent: Alert, Awake Assessment and Plan - Assessment and Plan (Free Text) Assessment: 80 yo F with PMHx including HTN, HLD, Recurrent DVT, CVA (2007), COPD, GERD brought in from [facility] due to sudden altered mental status admitted to ICU for AMS. Plan: Altered mental status, secondary to CVA - S/P extubated, S/P withdrawl of life support as per family - CT/MRI; shows right MCA infarct, hx of cva x2 previously - reviewed EEG/ECHO - discussed patient's condition with the family in present of pinmaker Dr Mcdonnell and Dr Eduardo Barr; KHUSHBOO nicolas decided to withdraw life support; only comfort care from this point; Family agreed to his decision - c/w below supportive measure as requested per family: - IV Morphine 3mg/ hr - Lorazepan 2mg IVP Q6 PRN Mild Persistent asthma - Albuterol/Ipratropium Q6 Fever on admission: most likely secondary to ischemic stroke - tylenol [place] PRN Hypertension - hold meds - monitor Hyperlipidemia - hold medication H/O Seizures: - hold medication GI prophylaxis - hold medication DVT Prophylaxis - hold medication
--- NOTE | 2016-06-15 13:04 | CP.PCM.PN ---
Subjective - Date & Time of Evaluation Date of Evaluation: 06/15/16 Objective - Vital Signs/Intake and Output Vital Signs (last 24 hours): Temp Pulse Resp BP Pulse Ox 99.5 F 85 22 102/61 95 06/15/16 08:25 06/15/16 08:25 06/15/16 08:25 06/15/16 08:25 06/15/16 08:25 - Medications Medications: Current Medications Acetaminophen (Tylenol 650 Mg Supp) 650 mg [place] Q4 PRN PRN Reason: Fever >100.4 F Last Admin: 06/15/16 02:27 Dose: 650 mg Albuterol/Ipratropium (Duoneb 3 Mg/0.5 Mg (3 Ml) Ud) 3 ml INH RQ6 LIBRA Last Admin: 06/15/16 07:52 Dose: 3 ml Morphine Sulfate 100 mg/ (Sodium Chloride) 104 mls @ 3.12 mls/hr IVPB .Q24H LIBRA ; 3 MG/HR PRN Reason: Protocol Last Admin: 06/15/16 04:05 Dose: 6 mls/hr Lorazepam (Ativan) 0.5 mg IVP Q2 PRN PRN Reason: Agitation Lorazepam (Ativan) 2 mg IVP Q6 PRN PRN Reason: Seizure activity - Labs Labs: 06/13/16 04:35 06/13/16 04:35 PT 12.1 SECONDS (9.6-11.2) H 06/11/16 12:05 INR 1.16 (0.92-1.08) H 06/11/16 12:05 APTT 27.3 SECONDS (23.3-32.5) 06/11/16 12:05 - Constitutional Appears: Chronically Ill - Head Exam Head Exam: NORMAL INSPECTION - Eye Exam Additional comments: Sluggish reaction to light, conjugated gaze. - ENT Exam Additional comments: Extubated - Neck Exam Neck Exam: Normal Inspection - Respiratory Exam Respiratory Exam: Decreased Breath Sounds - Cardiovascular Exam Cardiovascular Exam: REGULAR RHYTHM - Extremities Exam Extremities Exam: Pedal Edema - Neurological Exam Additional comments: Unresponsive - Skin Skin Exam: Warm Assessment and Plan (1) Acute respiratory failure Status: Acute (2) CVA (cerebral vascular accident) Status: Acute (3) COPD (chronic obstructive pulmonary disease) Status: Chronic (4) History of DVT (deep vein thrombosis) Status: Chronic
[2016-06-15] MEDS ORDERED: Chlorhexidine Gluconate 1 APPL/PKT TP ONE (14:26)
[2016-06-15] MEDS: Scopolamine 1.5 mg/24 hr Patch TD SCH (18:20)
[2016-06-15] MEDS ORDERED: Morphine 100 MG in Sodium Chloride 0.9% 100 ML IVPB SCH (21:01)
[2016-06-15] MEDS ORDERED: SODIUM CHLORIDE 0.9% IVPB SCH (21:15)
[2016-06-15] MEDS ORDERED: MORPHINE IVPB SCH (21:15)
[2016-06-16] MEDS: Albuterol-Ipratrop 3 mg / 0.5 (3 ml) UD INH SCH ×4 (01:31→19:46)
--- NOTE | 2016-06-16 10:58 | CP.PCM.PN ---
Addendum entered and electronically signed by Diana Flores MD 06/16/16 14:27 : Rattling breathing comming from patient. Physical Exam: Stage 2 Sacral Ulcer noted . - D/C venti mask, put on O2 2L nasal canula Original Note: Subjective - Date & Time of Evaluation Date of Evaluation: 06/16/16 Time of Evaluation: 07:30 - Subjective Subjective: 80 YO F who is on comfort measures is seen at bedside on a non rebreathable mask. Difficult to arouse. Seems to be in respiratory distress. Difficult to arouse/ Urine output: 1450 in past 24 hours Objective - Vital Signs/Intake and Output Vital Signs (last 24 hours): Temp Pulse Resp BP Pulse Ox 99.7 F H 95 H 20 118/57 L 94 L 06/16/16 08:09 06/16/16 08:09 06/16/16 08:09 06/16/16 08:09 06/16/16 08:09 - Medications Medications: Current Medications Acetaminophen (Tylenol 650 Mg Supp) 650 mg IN Q4 PRN PRN Reason: Fever >100.4 F Last Admin: 06/16/16 04:52 Dose: 650 mg Albuterol/Ipratropium (Duoneb 3 Mg/0.5 Mg (3 Ml) Ud) 3 ml INH RQ6 LIBRA Last Admin: 06/16/16 07:58 Dose: 3 ml Morphine Sulfate 250 mg/ (Sodium Chloride) 250 mls @ 6 mls/hr IVPB .Q24H LIBRA; 6 MG/HR PRN Reason: Protocol Last Admin: 06/15/16 21:54 Dose: 6 mls/hr Lorazepam (Ativan) 0.5 mg IVP Q2 PRN PRN Reason: Agitation Lorazepam (Ativan) 2 mg IVP Q6 PRN PRN Reason: Seizure activity Scopolamine (Transderm-Scop) 1 patch TD Q3D LIBRA Last Admin: 06/15/16 18:20 Dose: 1 patch - Labs Labs: 06/13/16 04:35 06/13/16 04:35 PT 12.1 SECONDS (9.6-11.2) H 06/11/16 12:05 INR 1.16 (0.92-1.08) H 06/11/16 12:05 APTT 27.3 SECONDS (23.3-32.5) 06/11/16 12:05 - Constitutional Appears: Chronically Ill - Head Exam Head Exam: ATRAUMATIC, NORMAL INSPECTION, NORMOCEPHALIC - Eye Exam Eye Exam: PERRL Pupil Exam: PERRL - Respiratory Exam Respiratory Exam: Rales, Rhonchi, Respiratory Distress. absent: Clear to Ausculation Bilateral - Cardiovascular Exam Cardiovascular Exam: REGULAR RHYTHM, +S1, +S2 - GI/Abdominal Exam GI & Abdominal Exam: Soft - Extremities Exam Extremities Exam: absent: Pedal Edema - Neurological Exam Neurological Exam: absent: Alert, Awake, Oriented x3 Assessment and Plan - Assessment and Plan (Free Text) Assessment: 80 yo F with PMHx including HTN, HLD, Recurrent DVT, CVA (2007), COPD, GERD brought in from [facility] due to sudden altered mental status admitted to ICU for AMS. Plan: Altered mental status, secondary to CVA - S/P extubated, S/P withdrawl of life support as per family - CT/MRI; shows right MCA infarct, hx of cva x2 previously - reviewed EEG/ECHO - discussed patient's condition with the family in present of financial controller Dr Mcdonnell and Dr Eduardo Barr; KHUSHBOO nicolas decided to withdraw life support; only comfort care from this point; Family agreed to his decision - c/w below supportive measure as requested per family: - IV Morphine 3mg/ hr - Lorazepan 2mg IVP Q6 PRN - Scopolamine 1.5mg 1 patch TD Q3D: To decrease secretions Mild Persistent asthma - Albuterol/Ipratropium Q6 Fever on admission: most likely secondary to ischemic stroke - tylenol [place] PRN Hypertension - hold meds - monitor Hyperlipidemia - hold medication H/O Seizures: - hold medication GI prophylaxis - hold medication DVT Prophylaxis - hold medication
[2016-06-16] MEDS ORDERED: MORPHINE IVPB SCH (17:35)
[2016-06-16] MEDS ORDERED: SODIUM CHLORIDE 0.9% IVPB SCH (17:35)
[2016-06-16] MEDS: MORPHINE IVPB SCH ×2 (21:29→21:33)
[2016-06-16] MEDS: SODIUM CHLORIDE 0.9% IVPB SCH ×2 (21:29→21:33)
[2016-06-17] MEDS: Albuterol-Ipratrop 3 mg / 0.5 (3 ml) UD INH SCH ×4 (01:02→19:36)
--- NOTE | 2016-06-17 06:48 | PQF GENQUE ---
This form is a permanent part of the medical record 06/18/15 Dr Eduardo Barr, Emergency Room Physician documented the following information with no mention of this diagnosis in your documentation. Please indicate in your next progress note and /or discharge summary your agreement with loss control consultant or provide clarification that this diagnosis is not a current condition. Diagnosis: Acute respiratory failure documented by transitions rn care coordinator and behavioral consultant as well as being intubated for airway Admitted with CVA and intubated/ventilated for airway protection as per H&P. Clarification of your documentation is requested to better reflect the severity of illness and intensity of treatment of your patient. PHYSICIAN'S RESPONSE Based on your medical judgment of the clinical indicators outlined above please clarify the following: [] Practitioner response [] If unable to determine, please check the box, sign and date. Present On Admission (POA) Indicator: [] Present at the time of admission [] Not present at the time of admission [] Clinically Undetermined In responding to this query, please exercise your independent professional judgment. The fact that a question is asked does not imply that any particular answer is desired or expected. Thank you for your clarification on this documentation. If you have any questions please call:[phone] * Thank you, Kristine Oh RN [facility]
--- NOTE | 2016-06-17 06:52 | PQF GENQUE ---
This form is a permanent part of the medical record 06/17/16 Dr.Pierre Barr, Medication - Correlation for Diagnosis. Would you please clarify if there is an associated diagnosis to go along with the use of the [place]. Clarification of your documentation is requested to better reflect the severity of illness and intensity of treatment of your patient. PHYSICIAN'S RESPONSE Based on your medical judgment of the clinical indicators outlined above please clarify the following: [] Practitioner response [] If unable to determine, please check the box, sign and date. Present On Admission (POA) Indicator: [] Present at the time of admission [] Not present at the time of admission [] Clinically Undetermined In responding to this query, please exercise your independent professional judgment. The fact that a question is asked does not imply that any particular answer is desired or expected. Thank you for your clarification on this documentation. If you have any questions please call:[phone] * Thank you, Kristine Oh RN [facility]
--- NOTE | 2016-06-17 08:48 | CP.PCM.PN ---
Subjective - Date & Time of Evaluation Date of Evaluation: 06/17/16 Time of Evaluation: 07:30 - Subjective Subjective: PT was seen at bedside. Ratling breathing is audible standing next to the patient. Is currently on nasal canula. Pt opens eyes of physical stimulous then closes it Objective - Vital Signs/Intake and Output Vital Signs (last 24 hours): Temp Pulse Resp BP Pulse Ox 101.8 F H 85 18 154/75 H 99 06/17/16 08:10 06/17/16 08:10 06/17/16 08:10 06/17/16 08:10 06/17/16 08:10 - Medications Medications: Current Medications Acetaminophen (Tylenol 650 Mg Supp) [address] Q4 PRN PRN Reason: Fever >100.4 F Last Admin: 06/17/16 05:41 Dose: 650 mg Albuterol/Ipratropium (Duoneb 3 Mg/0.5 Mg (3 Ml) Ud) 3 ml INH RQ6 LIBRA Last Admin: 06/17/16 07:52 Dose: 3 ml Morphine Sulfate 250 mg/ (Sodium Chloride) 250 mls @ 7 mls/hr IVPB .Q24H LIBRA; 7 MG/HR PRN Reason: Protocol Last Admin: 06/16/16 21:33 Dose: Not Given Lorazepam (Ativan) 0.5 mg IVP Q2 PRN PRN Reason: Agitation Lorazepam (Ativan) 2 mg IVP Q6 PRN PRN Reason: Seizure activity Scopolamine (Transderm-Scop) 1 patch TD Q3D LIBRA Last Admin: 06/15/16 18:20 Dose: 1 patch - Labs Labs: 06/13/16 04:35 06/13/16 04:35 PT 12.1 SECONDS (9.6-11.2) H 06/11/16 12:05 INR 1.16 (0.92-1.08) H 06/11/16 12:05 APTT 27.3 SECONDS (23.3-32.5) 06/11/16 12:05 - Constitutional Appears: Chronically Ill - Head Exam Head Exam: ATRAUMATIC, NORMAL INSPECTION, NORMOCEPHALIC - Respiratory Exam Respiratory Exam: Rales, Rhonchi, Respiratory Distress - Cardiovascular Exam Cardiovascular Exam: REGULAR RHYTHM, +S1, +S2 - GI/Abdominal Exam GI & Abdominal Exam: Soft - Extremities Exam Extremities Exam: absent: Pedal Edema Assessment and Plan - Assessment and Plan (Free Text) Assessment: 80 yo F with PMHx including HTN, HLD, Recurrent DVT, CVA (2007), COPD, GERD brought in from [facility] due to sudden altered mental status admitted to ICU for AMS. Plan: Acute respiratory failier most likely secondary to CVA (Comfort care) - poor prognosis - S/P extubated, S/P withdrawl of life support as per family - CT/MRI; shows right MCA infarct, hx of cva x2 previously - reviewed EEG/ECHO - discussed patient's condition with the family in present of round up ring hand Dr Mcdonnell and Dr Eduardo Barr; KHUSHBOO Linares grandson decided to withdraw life support; only comfort care from this point; Family agreed to his decision - c/w below supportive measure as requested per family: - IV Morphine 3mg/ hr - Lorazepan 2mg IVP Q6 PRN - Scopolamine 1.5mg 1 patch TD Q3D: To decrease secretions Mild Persistent asthma - Albuterol/Ipratropium Q6 Fever on admission: most likely secondary to ischemic stroke - tylenol TID - Tordol Hypertension - hold meds - monitor Hyperlipidemia - hold medication H/O Seizures: - hold medication GI prophylaxis - hold medication DVT Prophylaxis - hold medication
--- NOTE | 2016-06-17 16:11 | CP.PCM.PCO ---
Assessment/Plan - Assessment and Plan (Free Text) Assessment: Unable to add an addendum to resident note due to meditech updates I saw and evaluated the patient. I discussed the case with the resident and agree with the findings and plan as documented in the resident's note. Looks very comfortable. Hospice consult
[2016-06-18] MEDS: Albuterol-Ipratrop 3 mg / 0.5 (3 ml) UD INH SCH ×4 (01:00→20:22)
--- NOTE | 2016-06-18 09:25 | CP.PCM.PN ---
Subjective - Date & Time of Evaluation Date of Evaluation: 06/18/16 Time of Evaluation: 07:40 - Subjective Subjective: Patient seen and examined bedside, stuporous, mild response on physical stimulus, using O2 NC. Ratling breathing audible. Objective - Vital Signs/Intake and Output Vital Signs (last 24 hours): Temp Pulse Resp BP Pulse Ox 98.9 F 101 H 18 152/81 H 93 L 06/18/16 08:51 06/18/16 08:51 06/18/16 08:51 06/18/16 08:51 06/18/16 08:51 - Medications Medications: Current Medications Acetaminophen (Tylenol 650 Mg Supp) 650 mg [place] TID LIBRA Last Admin: 06/18/16 09:15 Dose: Not Given Albuterol/Ipratropium (Duoneb 3 Mg/0.5 Mg (3 Ml) Ud) 3 ml INH RQ6 LIBRA Last Admin: 06/18/16 08:00 Dose: 3 ml Morphine Sulfate 250 mg/ (Sodium Chloride) 250 mls @ 7 mls/hr IVPB .Q24H LIBRA; 7 MG/HR PRN Reason: Protocol Last Admin: 06/16/16 21:33 Dose: Not Given Ketorolac Tromethamine (Toradol) 15 mg IVP ONCE LIBRA Lorazepam (Ativan) 0.5 mg IVP Q2 PRN PRN Reason: Agitation Lorazepam (Ativan) 2 mg IVP Q6 PRN PRN Reason: Seizure activity Scopolamine (Transderm-Scop) 1 patch TD Q3D LIBRA Last Admin: 06/15/16 18:20 Dose: 1 patch - Labs Labs: 06/13/16 04:35 06/13/16 04:35 PT 12.1 SECONDS (9.6-11.2) H 06/11/16 12:05 INR 1.16 (0.92-1.08) H 06/11/16 12:05 APTT 27.3 SECONDS (23.3-32.5) 06/11/16 12:05 - Constitutional Appears: In Acute Distress, Chronically Ill - Head Exam Head Exam: ATRAUMATIC - Respiratory Exam Respiratory Exam: Rales, Rhonchi - Cardiovascular Exam Cardiovascular Exam: REGULAR RHYTHM, +S1, +S2 - GI/Abdominal Exam GI & Abdominal Exam: Soft. absent: Tenderness - Extremities Exam Extremities Exam: Pedal Edema (stupor) Assessment and Plan - Assessment and Plan (Free Text) Plan: 80 yo F with PMHx including HTN, HLD, Recurrent DVT, CVA (2007), COPD, GERD brought in from [facility] due to sudden altered mental status admitted to ICU for AMS. Plan: Acute respiratory failure most likely secondary to CVA (Comfort care) - poor prognosis - S/P extubated, S/P withdrawal of life support as per family - CT/MRI; shows right MCA infarct, hx of cva x2 previously - reviewed EEG/ECHO - discussed patient's condition with the family in present of petroleum engineering teacher Dr Mcdonnell and Dr Eduardo Barr; KHUSHBOO Linares grandson decided to withdraw life support; only comfort care from this point; Family agreed to his decision - c/w below supportive measure as requested per family: - IV Morphine 3mg/ hr - Lorazepan 2mg IVP Q6 PRN - Scopolamine 1.5mg 1 patch TD Q3D: To decrease secretions -Hospice service declined by patient's family Mild Persistent asthma - Albuterol/Ipratropium Q6 Fever on admission: most likely secondary to ischemic stroke - tylenol TID - Tordol Hypertension - hold meds - monitor Hyperlipidemia - hold medication H/O Seizures: - hold medication GI prophylaxis - hold medication DVT Prophylaxis - hold medication
[2016-06-18] MEDS: SODIUM CHLORIDE 0.9% IVPB SCH (10:34)
[2016-06-18] MEDS: MORPHINE IVPB SCH (10:34)
[2016-06-18] MEDS: Scopolamine 1.5 mg/24 hr Patch TD SCH (16:23)
[2016-06-19] MEDS: Albuterol-Ipratrop 3 mg / 0.5 (3 ml) UD INH SCH ×4 (01:02→20:22)
[2016-06-19] MEDS ORDERED: Chlorhexidine Gluconate 1 APPL/PKT TP ONE (08:13)
--- NOTE | 2016-06-19 08:36 | CP.PCM.PN ---
Subjective - Date & Time of Evaluation Date of Evaluation: 06/19/16 Time of Evaluation: 07:40 - Subjective Subjective: Patient seen getting her nebulizer treatment. Eyes were slightly open. Rattling lung sound was heard. Minimal response to physical stimulus Objective - Vital Signs/Intake and Output Vital Signs (last 24 hours): Temp Pulse Resp BP Pulse Ox 100.6 F H 93 H 20 144/76 94 L 06/19/16 08:23 06/19/16 08:23 06/19/16 08:23 06/19/16 08:23 06/19/16 08:23 - Medications Medications: Current Medications Acetaminophen (Tylenol 650 Mg Supp) 650 mg [place] TID LIBRA Last Admin: 06/19/16 08:21 Dose: 650 mg Albuterol/Ipratropium (Duoneb 3 Mg/0.5 Mg (3 Ml) Ud) 3 ml INH RQ6 LIBRA Last Admin: 06/19/16 07:59 Dose: 3 ml Morphine Sulfate 250 mg/ (Sodium Chloride) 250 mls @ 7 mls/hr IVPB .Q24H LIBRA; 7 MG/HR PRN Reason: Protocol Last Admin: 06/18/16 10:34 Dose: 7 mls/hr Ketorolac Tromethamine (Toradol) 15 mg IVP ONCE LIBRA Lorazepam (Ativan) 0.5 mg IVP Q2 PRN PRN Reason: Agitation Lorazepam (Ativan) 2 mg IVP Q6 PRN PRN Reason: Seizure activity Scopolamine (Transderm-Scop) 1 patch TD Q3D LIBRA Last Admin: 06/18/16 16:23 Dose: 1 patch - Labs Labs: 06/13/16 04:35 06/13/16 04:35 PT 12.1 SECONDS (9.6-11.2) H 06/11/16 12:05 INR 1.16 (0.92-1.08) H 06/11/16 12:05 APTT 27.3 SECONDS (23.3-32.5) 06/11/16 12:05 - Constitutional Appears: Chronically Ill - Head Exam Head Exam: ATRAUMATIC, NORMOCEPHALIC - Eye Exam Pupil Exam: PERRL - Respiratory Exam Respiratory Exam: Rales, Rhonchi - Cardiovascular Exam Cardiovascular Exam: REGULAR RHYTHM, +S1, +S2 - GI/Abdominal Exam GI & Abdominal Exam: Soft - Neurological Exam Neurological Exam: absent: Alert, Awake, Oriented x3 Assessment and Plan - Assessment and Plan (Free Text) Assessment: 80 yo F with PMHx including HTN, HLD, Recurrent DVT, CVA (2007), COPD, GERD brought in from [facility] due to sudden altered mental status admitted to ICU for AMS. Plan: Acute respiratory failier most likely secondary to CVA (Comfort care) - poor prognosis - S/P extubated, S/P withdrawl of life support as per family - CT/MRI; shows right MCA infarct, hx of cva x2 previously - reviewed EEG/ECHO - discussed patient's condition with the family in present of intern Dr Mcdonnell and Dr Eduardo Barr; KHUSHBOO nicolas decided to withdraw life support; only comfort care from this point; Family agreed to his decision - c/w below supportive measure as requested per family: - IV Morphine 3mg/ hr - Lorazepan 2mg IVP Q6 PRN - Scopolamine 1.5mg 1 patch TD Q3D: To decrease secretions Mild Persistent asthma - Albuterol/Ipratropium Q6 Fever on admission: most likely secondary to ischemic stroke - tylenol TID - Tordol Hypertension - hold meds - monitor Hyperlipidemia - hold medication H/O Seizures: - hold medication GI prophylaxis - hold medication DVT Prophylaxis - hold medication
[2016-06-19] MEDS: SODIUM CHLORIDE 0.9% IVPB SCH (20:43)
[2016-06-19] MEDS: MORPHINE IVPB SCH (20:43)
[2016-06-20] MEDS: Albuterol-Ipratrop 3 mg / 0.5 (3 ml) UD INH SCH ×4 (01:50→19:35)
--- NOTE | 2016-06-20 09:54 | CP.PCM.PN ---
Subjective - Date & Time of Evaluation Date of Evaluation: 06/20/16 Time of Evaluation: 07:00 - Subjective Subjective: 80 YO F was seen with her son at her beside. Rattling breath sounds seeemed less then previous visit. She was minimaly respnsive to physical stimuli Objective - Vital Signs/Intake and Output Vital Signs (last 24 hours): Temp Pulse Resp BP Pulse Ox 101.7 F H 85 24 119/55 L 93 L 06/20/16 08:24 06/20/16 08:24 06/20/16 08:24 06/20/16 08:24 06/20/16 08:24 - Medications Medications: Current Medications Acetaminophen (Tylenol 650 Mg Supp) 650 mg [place] TID LIBRA Last Admin: 06/19/16 17:03 Dose: 650 mg Acetaminophen (Tylenol 650 Mg Supp) 650 mg [place] Q6 PRN PRN Reason: Fever >100.4 F Last Admin: 06/20/16 06:58 Dose: 650 mg Albuterol/Ipratropium (Duoneb 3 Mg/0.5 Mg (3 Ml) Ud) 3 ml INH RQ6 LIBRA Last Admin: 06/20/16 07:42 Dose: 3 ml Morphine Sulfate 250 mg/ (Sodium Chloride) 250 mls @ 7 mls/hr IVPB .Q24H LIBRA; 7 MG/HR PRN Reason: Protocol Last Admin: 06/19/16 20:43 Dose: 7 mls/hr Ketorolac Tromethamine (Toradol) 15 mg IVP ONCE LIBRA Lorazepam (Ativan) 0.5 mg IVP Q2 PRN PRN Reason: Agitation Lorazepam (Ativan) 2 mg IVP Q6 PRN PRN Reason: Seizure activity Scopolamine (Transderm-Scop) 1 patch TD Q3D LIBRA Last Admin: 06/18/16 16:23 Dose: 1 patch - Labs Labs: 06/13/16 04:35 06/13/16 04:35 PT 12.1 SECONDS (9.6-11.2) H 06/11/16 12:05 INR 1.16 (0.92-1.08) H 06/11/16 12:05 APTT 27.3 SECONDS (23.3-32.5) 06/11/16 12:05 - Constitutional Appears: Chronically Ill - Head Exam Head Exam: ATRAUMATIC, NORMOCEPHALIC - Eye Exam Eye Exam: PERRL - Respiratory Exam Respiratory Exam: Rales, Rhonchi Additional comments: On nasal canula - Cardiovascular Exam Cardiovascular Exam: REGULAR RHYTHM, +S1, +S2 - GI/Abdominal Exam GI & Abdominal Exam: Soft - Neurological Exam Neurological Exam: absent: Alert, Awake, Oriented x3 Assessment and Plan - Assessment and Plan (Free Text) Assessment: 80 yo F with PMHx including HTN, HLD, Recurrent DVT, CVA (2007), COPD, GERD brought in from [facility] due to sudden altered mental status admitted to ICU for AMS. Plan: Acute respiratory failier most likely secondary to CVA (Comfort care) - poor prognosis - S/P extubated, S/P withdrawl of life support as per family - CT/MRI; shows right MCA infarct, hx of cva x2 previously - reviewed EEG/ECHO - discussed patient's condition with the family in present of hand laminator Dr Mcdonnell and Dr Eduardo Barr; KHUSHBOO Linares grandson decided to withdraw life support; only comfort care from this point; Family agreed to his decision - c/w below supportive measure as requested per family: - IV Morphine 3mg/ hr - Lorazepan 2mg IVP Q6 PRN - Scopolamine 1.5mg 1 patch TD Q3D: To decrease secretions Mild Persistent asthma - Albuterol/Ipratropium Q6 Fever on admission: most likely secondary to ischemic stroke - tylenol TID - Tordol Hypertension - hold meds - monitor Hyperlipidemia - hold medication H/O Seizures: - hold medication GI prophylaxis - hold medication DVT Prophylaxis - hold medication
[2016-06-21] MEDS: Albuterol-Ipratrop 3 mg / 0.5 (3 ml) UD INH SCH ×3 (01:04→13:17)
[2016-06-21 08:33] VITALS: BP 64/31; PULSE 120; RESP 18; TEMP 102.9; O2SAT 82
--- NOTE | 2016-06-21 08:56 | CP.PCM.PN ---
Subjective - Date & Time of Evaluation Date of Evaluation: 06/21/16 Time of Evaluation: 07:45 - Subjective Subjective: 80 YO F was seen at bedside. She appeared to sweating slightly. Ratling breath sounds have subsided from previous visit. PT was difficult to awake. Patient has been febrile over night Objective - Vital Signs/Intake and Output Vital Signs (last 24 hours): Temp Pulse Resp BP Pulse Ox 102.9 F H 120 H 18 64/31 L 82 L 06/21/16 08:32 06/21/16 08:32 06/21/16 08:32 06/21/16 08:32 06/21/16 08:32 - Medications Medications: Current Medications Acetaminophen (Tylenol 650 Mg Supp) 650 mg [place] Q6 PRN PRN Reason: Fever >100.4 F Last Admin: 06/21/16 06:13 Dose: 650 mg Albuterol/Ipratropium (Duoneb 3 Mg/0.5 Mg (3 Ml) Ud) 3 ml INH RQ6 LIBRA Last Admin: 06/21/16 07:20 Dose: 3 ml Morphine Sulfate 250 mg/ (Sodium Chloride) 250 mls @ 7 mls/hr IVPB .Q24H LIBRA; 7 MG/HR PRN Reason: Protocol Last Admin: 06/19/16 20:43 Dose: 7 mls/hr Ketorolac Tromethamine (Toradol) 15 mg IVP ONCE LIBRA Lorazepam (Ativan) 0.5 mg IVP Q2 PRN PRN Reason: Agitation Lorazepam (Ativan) 2 mg IVP Q6 PRN PRN Reason: Seizure activity Scopolamine (Transderm-Scop) 1 patch TD Q3D LIBRA Last Admin: 06/18/16 16:23 Dose: 1 patch - Labs Labs: 06/13/16 04:35 06/13/16 04:35 PT 12.1 SECONDS (9.6-11.2) H 06/11/16 12:05 INR 1.16 (0.92-1.08) H 06/11/16 12:05 APTT 27.3 SECONDS (23.3-32.5) 06/11/16 12:05 - Constitutional Appears: Chronically Ill - Head Exam Head Exam: ATRAUMATIC, NORMOCEPHALIC - Eye Exam Pupil Exam: PERRL - Respiratory Exam Respiratory Exam: Rales, Rhonchi - Cardiovascular Exam Cardiovascular Exam: Tachycardia, +S1, +S2 - GI/Abdominal Exam GI & Abdominal Exam: Soft, Normal Bowel Sounds. absent: Tenderness - Neurological Exam Neurological Exam: absent: Alert, Awake, Oriented x3 Assessment and Plan - Assessment and Plan (Free Text) Assessment: 80 yo F with PMHx including HTN, HLD, Recurrent DVT, CVA (2007), COPD, GERD brought in from [facility] due to sudden altered mental status admitted to ICU for AMS. Plan: Acute respiratory failier most likely secondary to CVA (Comfort care) - poor prognosis - S/P extubated, S/P withdrawl of life support as per family - CT/MRI; shows right MCA infarct, hx of cva x2 previously - reviewed EEG/ECHO - discussed patient's condition with the family in present of preventive medicine specialist Dr Mcdonnell and Dr Eduardo Barr; KHUSHBOO nicolas decided to withdraw life support; only comfort care from this point; Family agreed to his decision - c/w below supportive measure as requested per family: - IV Morphine 7mg/ hr - Lorazepan 2mg IVP Q6 PRN - Scopolamine 1.5mg 1 patch TD Q3D: To decrease secretions Mild Persistent asthma - Albuterol/Ipratropium Q6 Fever on admission: most likely secondary to ischemic stroke - tylenol Q4 PRN - Tordol Hypertension - hold meds - monitor Hyperlipidemia - hold medication H/O Seizures: - hold medication GI prophylaxis - hold medication DVT Prophylaxis - hold medication
[2016-06-21] MEDS: MORPHINE IVPB SCH (10:40)
[2016-06-21] MEDS: SODIUM CHLORIDE 0.9% IVPB SCH (10:40)
--- NOTE | 2016-06-21 15:08 | CP.PCM.PRO ---
Pronouncement of Note - Clinical Findings Physical Exam: No Response Verbal/Painful Stimuli, Absent Peripheral Pulses{ Carotid & Femoral}, Absent Heart & Breath Sounds, No Pupillary Light Reflex, No Corneal Reflex, Pupils Fixed & Dilated, Absence of Vital Signs - Pronouncement Time Time of Pronouncement of : 14:05 - Notifications Pronouncement Notifications: Family Notified, Atending Notified Appliance Service Representative Notified: No - Autopsy Autopsy Requested: No - [place] [id number]
== END 2016-06-21 14:05 | DRG 64 ==
LOC: H.ER 11:56 → H.ERHOLD 13:29 → H.ICU/CCU 14:41 → H.MEDSURG1 06-14 14:05
PROVIDERS: ADMIT Family Medicine Geriatric Medicine; ATTEND Family Medicine Geriatric Medicine
PROC: 0BH17EZ Insertion of Endotracheal Airway into Trachea, Via Natural or Artificial Opening (ICD-10-PCS; principal; 2016-06-11)
PROC: 5A1945Z Respiratory Ventilation, 24-96 Consecutive Hours (ICD-10-PCS; 2016-06-11)
DX: I63.411 Cerebral infarction due to embolism of right middle cerebral artery (principal); J96.00 Acute respiratory failure, unspecified whether with hypoxia or hypercapnia; I69.351 Hemiplegia and hemiparesis following cerebral infarction affecting right dominant side; G81.14 Spastic hemiplegia affecting left nondominant side; I50.9 Heart failure, unspecified; J44.9 Chronic obstructive pulmonary disease, unspecified; I10 Essential (primary) hypertension; E78.00 Pure hypercholesterolemia, unspecified; M81.0 Age-related osteoporosis without current pathological fracture; Z86.718 Personal history of other venous thrombosis and embolism; Z66 Do not resuscitate; K21.9 Gastro-esophageal reflux disease without esophagitis; Z87.01 Personal history of pneumonia (recurrent); Z87.891 Personal history of nicotine dependence; E78.5 Hyperlipidemia, unspecified; G40.909 Epilepsy, unspecified, not intractable, without status epilepticus; Z79.01 Long term (current) use of anticoagulants; R40.2432 Glasgow coma scale score 3-8, at arrival to emergency department; Z99.3 Dependence on wheelchair; J45.30 Mild persistent asthma, uncomplicated; Z87.440 Personal history of urinary (tract) infections